=== PATIENT | male | born 1935 | race Caucasian/White ===

== ENCOUNTER 2016-10-31 16:36 | Inpatient (IN) ==
[2016-10-31] MEDS ORDERED: MAGNESIUM SULF RIDER 50 ML IV ONE (16:50)
[2016-10-31] MEDS ORDERED: MAGNESIUM SULF RIDER 2 GM in PREMIX 1 EACH IV STA (16:51)
--- NOTE | 2016-10-31 17:02 | Emergency Department Note ---
Rashad Finch Jamie, am scribing for, and in the presence of, Pj Frost MD 16: 43. Margot Ficnh James D, MD, personally performed the services described in this documentation, ascribed by Aristeo Solorzano in my presence, and it is both accurate and complete 657 . Arrival - Arrival Mode of Arrival: Stretcher Limitations: No Limitations Source: Patient, RN Notes Reviewed - History of Present Illness Onset (ago): hour(s) (2) Consistency: constant Severity: moderate <Pj Frost - Last Filed: 10/31/16 17:25> <You Quiles - Last Filed: 10/31/16 18:14> - History of Present Illness HPI Narrative: Patient is a 81 y/o white male who is presented by EMS as a transfer from [facility] for evaluation of defibrillator going off. Patient states he was eating when defibrillator went off knocking his cornbread out of his hand. He reports that this is the second time with the first time being 3-4 years ago. Patient states he "feels good" with no complaints. He has an EF of 25-30%. (Aristeo Solorzano) Patient is a 81 y/o white male who is presented by EMS as a transfer from [facility] for evaluation of defibrillator going off. Patient states he was eating when defibrillator went off knocking his cornbread out of his hand. He reports that this is the second time with the first time being 3-4 years ago. Patient states he "feels good" with no complaints. He has an EF of 25-30%. (Pj Frost) Allergies/Adverse Reactions: Allergies Allergy/AdvReac Type Severity Reaction Status Date / Time diazepam [From Valium] Allergy Unknown/Unable Verified 10/31/16 16:45 to obtain Home Medications: Home Medications Medication Instructions Recorded Confirmed Type Sertraline [Zoloft] 50 mg PO DAILY 10/31/16 10/31/16 History Simvastatin [Simvastatin] 40 mg PO DAILY 10/31/16 10/31/16 History Warfarin [Coumadin] 1 mg PO DAILY 10/31/16 10/31/16 History Warfarin [Coumadin] 5 mg PO DAILY 10/31/16 10/31/16 History Review of System - Review of System 12 point system: reviewed and no additional remarkable complaints except as stated - Review of System Constitutional: Absent: chills, diaphoresis, fever, weakness Eyes: Absent: vision change Respiratory: Absent: cough Cardiovascular: Present: other (Defibrillator went off). Absent: chest pain Gastrointestinal: Absent: abdominal pain, nausea, vomiting, diarrhea, constipation Musculoskeletal: Absent: joint swelling Skin: Absent: rash, change in color Neurological: Absent: headache, weakness, numbness, confusion Hematological/Lymphatic: Absent: easy bleeding, easy bruising <Pj Frost - Last Filed: 10/31/16 17:25> Medical,Surgical,& Family Hx - Medical History Cardio: History of: CHF (Nonischemic cardiomyopathy), Hypertension - Social History Smoking Status: Never smoker Frequency of Alcohol Use: None Type of Drug Use: None Marital Status: Lives With:: Alone Functional capacity: independent ambulation <Pj Frost - Last Filed: 10/31/16 17:25> Exam <Pj Frost - Last Filed: 10/31/16 17:25> <You Quiles - Last Filed: 10/31/16 18:14> Vital Signs: Vital Signs Temperature 97.6 F 10/31/16 16:41 Pulse Rate 79 10/31/16 16:41 Respiratory Rate 18 10/31/16 17:23 Blood Pressure 101/72 10/31/16 16:41 O2 Sat by Pulse Oximetry 97 10/31/16 16:41 GENERAL: This is a well-nourished well-developed white male in no apparent distress. VITAL SIGNS: Reviewed HEENT: Head is atraumatic and normocephalic. Pupils are equal round react to light. Extraocular movements are intact. Oropharynx is benign with moist mucous membranes. NECK: Neck is soft and supple without tenderness. There are no masses. There is no lymphadenopathy. LUNGS: Lungs are clear to auscultation. Chest rises symmetrically. There is no chest wall tenderness. CV: Heart is irregularly irregular with 2/6 systolic ejection murmur loudest at the right sternal border. ABDOMEN: Abdomen is soft, nontender to palpation. There are no abdominal abnormal masses palpated. There is no organomegaly. Bowel sounds are present and active. SKIN: Skin is warm and dry. No rash. EXTREMITIES: Patient has full range of motion without tenderness. There is no pedal edema. NEUROLOGIC: Awake alert and oriented 4. Cranial nerves II through XII are grossly intact. Motor is 5 over 5 in all extremities bilaterally. (Pj Frost) Course - Consultations Time: 17:01 <Pj Frost - Last Filed: 10/31/16 17:25> - Consultations Time: 18:14 <You Quiles - Last Filed: 10/31/16 18:14> Course Narrative: AICD will be interrogated. (Pj Frost) - Consultations Consultation #1: Discussed with Dr. Pollock. (Pj Frost) Consultation #2: Dr. Yessi Gonzales will admit the patient to observation. (You Quiles) Results - Labs Lab Results: I have reviewed the patients labs - EKG EKG results: interpreted by ERMD - Diagnostic Findings Procedure: Chest x-ray: image reviewed by me (AICD in position with leads in position. Cardiomegaly.) <Pj Frost - Last Filed: 10/31/16 17:25> - Labs Lab Results: I have reviewed the patients labs <You Quiles - Last Filed: 10/31/16 18:14> - Impressions EKG: Atrial fibrillation with a rate of 78, frequent PVCs, left bundle branch block. (Pj Frost) Disposition Case discussed with: patient <Pj Frost - Last Filed: 10/31/16 17:25> <You Quiles - Last Filed: 10/31/16 18:14> Clinical Impression: Nonischemic cardiomyopathy, AICD discharge, Atrial fibrillation, Chronic anticoagulation Condition: Stable
[2016-10-31 17:22] LABS: INR 1.8; PT Patient Result 20.1 SECS; Partial Thromboplastin Time 23.9 SECS (0-40)
--- NOTE | 2016-10-31 17:26 | XRay Report ---
2 view chest. Indication: Cardiac arrhythmia. Comparison: June 22, 2013. The cardiac silhouette is enlarged with a globular configuration often indicating cardiomyopathy or pericardial effusion. Cardiac hardware appears to be in satisfactory position. Calcific plaque is present within the aortic knob. The pulmonary vasculature is normal. The lung rodriguez are free of infiltrate. No pneumothorax or pleural effusion. Stable osseous structures. Interposition of colon anterior and superior to the liver margin. Impression: Enlarged cardiac silhouette. No acute abnormality or interval change seen. PROCEDURE INTERPRETED AT [facility] DEPARTMENT OF RADIOLOGY Final Report Signed by: Dr. Edwige Cameron
[2016-10-31] MEDS ORDERED: guaiFENesin/DM ER 600-30 MG TABLET PO PRN (18:14)
[2016-10-31] MEDS ORDERED: ACETAMINOPHEN 325 MG TABLET PO PRN (18:14)
[2016-10-31] MEDS ORDERED: DOCUSATE SODIUM 100 MG CAPSULE PO PRN (18:14)
[2016-10-31] MEDS ORDERED: MORPHINE 2 MG/1 ML SYRINGE IV PRN (18:14)
[2016-10-31] MEDS ORDERED: MAGNESIUM SULF RIDER 2 GM in PREMIX 1 EACH IV PRN (18:14)
[2016-10-31] MEDS ORDERED: ONDANSETRON 4 MG/2 ML VIAL IV PRN (18:14)
[2016-10-31] MEDS ORDERED: POTASSIUM CHLORIDE 20 MEQ TABLET PO PRN (18:14)
[2016-11-01 07:12] LABS: Basophils % 0.6 % (0.0-0.8); Eosinophils # 0.1 10*3/uL (0.0-0.87); Eosinophils % 2.4 % (0.00-10.9); Hematocrit 39.6 VOL% (42.0-52.0); Hemoglobin 12.6 GM/DL (14.0-18.0); Immature Granulocytes % 0.4 %; Immature Granulocytes Absolute 0.02 #; Lymphocytes # 1.2 10*3/uL (1.4-4.0); Lymphocytes % 22.2 % (21.2-54.2); Mean Corpuscular HGB Conc 31.8 GM/DL (32-36); Mean Corpuscular Hemoglobin 28 PG (27-34); Mean Corpuscular Volume 88.6 FL (87-102); Mean Platelet Volume 10.5 FL (9.6-12.0); Monocytes # 0.5 10*3/uL (0.11-0.8); Monocytes % 8.6 % (1.7-12.7); Neutrophils # 3.5 10*3/uL (1.4-7.4); Neutrophils % 65.8 % (38.7-73.9); Platelet Count 100 T/CUMM (130-400); Red Blood Count 4.47 MC/CUMM (3.8-5.5); Red Cell Distribution Width 14.2 % (9.3-17.3); White Blood Count 5.3 T/CUMM (4-12)
[2016-11-01 07:43] LABS: Calcium 8.8 MG/DL (8.5-10.1); Magnesium 2.6 MG/DL (1.8-2.4); Osmolality,Calculated 295.8 MOS/KG (273-304); Potassium 4.3 MMOL/L (3.5-5.1)
[2016-11-01] MEDS: SERTRALINE 50 MG TABLET PO SCH (08:57)
[2016-11-01] MEDS: SIMVASTATIN 40 MG TABLET PO SCH (08:57)
[2016-11-01] MEDS: PANTOPRAZOLE 40 MG TABLET PO SCH (08:57)
[2016-11-01] MEDS ORDERED: CARVEDILOL 3.125 MG TABLET PO SCH (09:00)
--- NOTE | 2016-11-01 09:13 | EKG Report ---
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
--- NOTE | 2016-11-01 09:21 | Cardiology History & Physical ---
Assessment and Plan - Time spent with patient Time spent with patient: Greater than 30 minutes (Examination, chart review, film review documentation and orders) (1) Ventricular tachycardia Status: Acute Assessment and plan: The patient reports a period of recurrent cardioversions with VT approximately 5 years ago. He is now had another brief period here over the last 2 weeks several anti-tachycardia pacing sequences and now a high voltage DC cardioversion that appeared to be appropriate. I will continue a low-dose Coreg as he tolerates and we will ask Dr. James to see. I will not start antiarrhythmics at this point. If he becomes unstable the plan may change however for now would like Dr. James to see while not on antiarrhythmics. I do not think the patient is on antiarrhythmics he did not recognize the names of any. He does not know all of his medications and they are being brought by his family from home. Current Visit: Yes (2) Renal insufficiency Status: Chronic Assessment and plan: I am not sure of the chronicity of this is mild. I will recheck in the morning. His electrolytes are normal. Current Visit: Yes (3) Atrial fibrillation Status: Chronic Current Visit: Yes Qualifiers: Atrial fibrillation type: permanent Qualified Code(s): I48.2 - Chronic atrial fibrillation (4) Chronic anticoagulation Status: Chronic Current Visit: Yes (5) Nonischemic cardiomyopathy Status: Acute Current Visit: Yes (6) Hypotension Status: Acute Current Visit: Yes History of Present Illness Chief complaint: ICD shock History of present illness: Mr. Taylor is a 81 year old male patient of Dr. Bubba Granado who has nonischemic cardiomyopathy [place] [employer] class II. The patient has a history of 5 shocks several years ago and had generator change approximately 2 years ago. The patient states that over the last 2 weeks he has felt funny at several different times. Yesterday while visiting his at the fci and eating cornbread device shocked him. He states that he felt that weak feeling again followed by a warm feeling and then shocked him. His device was interrogated in the emergency room at [facility] after being transferred from the emergency room at [facility]. The patient has had more than one episode of anti-tachycardia pacing that prevented high-voltage shock however yesterday it failed and he was rescued with a high voltage shock. The patient tells me that he has been shocked 5 times before it sounds like relatively close together a few years ago. He also tells me he has no coronary artery disease. He is on a heart failure regimen but does not know his medications he did know the name of Coreg and Coumadin with other medications he did not know the name off. His family is bringing his medications later today so we can clarify. It appears as though his blood pressure is so low at this time he will not tolerate much more in the form of EPHRAIM or ARB. The patient has been relatively stable he has not been seen at [facility] therefore I do not have any outpatient records and he states it has been a while since he saw Dr. Granado. He seems to be very compliant. He is but his is in a fci with Alzheimer's dementia and he is remains very active. He states he can walk as far she needs to without having shortness of breath he denies any lower extremity edema and he sleeps on one pillow at night. He is very pleasant and conversant. 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 He is now retired. The patient denies any syncope he did have what sounds like symptomatic ATP in the last couple weeks he has not had any chest pain and no change in his overall status he denies fevers or chills. This shock came as a complete surprise to him and he said he felt perfectly fine. Home Medications Medication Instructions Recorded Confirmed Type Sertraline [Zoloft] 50 mg PO DAILY 10/31/16 10/31/16 History Simvastatin [Simvastatin] 40 mg PO DAILY 10/31/16 10/31/16 History Warfarin [Coumadin] 1 mg PO DAILY 10/31/16 10/31/16 History Warfarin [Coumadin] 5 mg PO DAILY 10/31/16 10/31/16 History Allergies Allergy/AdvReac Type Severity Reaction Status Date / Time diazepam [From Valium] Allergy Unknown/Unable Verified 10/31/16 16:45 to obtain - Constitutional Constitutional: Absent: anorexia, chills, malaise, night sweats, stops breathing during sleep - EENT Eyes: Absent: loss of vision, requires corrective lense Ears: Present: decreased hearing Nose, mouth and throat: Absent: nasal congestion, neck mass, tongue swelling - Cardiovascular Cardiovascular: Present: lightheadedness. Absent: chest pain at rest, chest pain with activity, claudication, diaphoresis, dyspnea, dyspnea on exertion, edema, orthopnea, palpitations, PND - Respiratory Respiratory: Absent: cough, dyspnea, dyspnea on exertion, wheezing, snoring, change in phlegm color - Gastrointestinal Gastrointestinal: Absent: abdominal pain, bloating, dyspepsia, dysphagia - Genitourinary Genitourinary: Present: difficulty urinating. Absent: hematuria, nocturia - Musculoskeletal Musculoskeletal: Absent: arthralgias, joint swelling - Neurological Neurological: Absent: abnormal gait, abnormal speech, disequilibrium - Psychiatric Psychiatric: Absent: anxiety, auditory hallucinations, depression - Endocrine Endocrine: Absent: cold intolerance, heat intolerance - Hematologic/Lymphatic Hematologic/Lymphatic: Absent: easy bleeding, easy bruising Medical,Surgical,& Family Hx - Medical History Cardio: History of: Cardiac Dysrhythmia (VT/V. fib. Also reports a history of chronic atrial fibrillation.), CHF (Nonischemic cardiomyopathy), Hypertension, Cardiovascular Problems (Defibrillator with history of risky previously with voltage shocks and anti) Neurology: History of: TIA Musculoskeletal: No history of: Amputation Other: History of: Miscellaneous Medical Problems (dvt) - Surgical History Cardiac Surgeries: Sugical HX of: Internal Defibrillator Patient Denies: Cardiac Catheterization Thoracic Surgeries: Patient denies;: Organ Transplant, Lobectomy HEENT Surgeries: Patient denies: Tonsilectomy & Adenoidectomy - Social History Smoking Status: Never smoker Frequency of Alcohol Use: None Type of Drug Use: None Marital Status: Lives With:: Alone ( resides in a fci due to Alzheimer's) Functional capacity: independent ambulation Cardiology Physical Exam - Constitutional Vitals: Vital Signs Temp Pulse Resp BP Pulse Ox 98.1 F 63 18 86/52 92 L 11/01/16 08:00 11/01/16 08:00 11/01/16 05:35 11/01/16 08:00 11/01/16 08:00 Intake and Output 10/31/16 11/01/16 11/01/16 23:59 07:59 15:59 Intake Total 220 / 220 0 / 0 Output Total 400 / 400 Balance -180 / -180 0 / 0 Intake: Oral 220 / 220 0 / 0 Output: Urine 400 / 400 Other: Voiding Method Urinal Weight 113.398 kg 113.398 kg Patient Weight 11/01/16 23:59 Weight 113.398 kg General appearance: normal weight (Very tall gentleman that appears younger than his stated age) - Head Head exam: Present: normal inspection - Eye Eye exam: Present: EOMI Pupils: Present: JOMAR - ENT ENT exam: Present: normal exam - Neck Neck exam: Present: normal inspection - Respiratory Respiratory exam: Present: clear to auscultation bilaterally - Cardiovascular Cardiovascular exam: Present: irregular rhythm (Right is about 80) - GI/Abdominal GI/Abdominal exam: Present: normal bowel sounds - Extremities Exam Extremities exam: Present: normal inspection. Absent: edema - Back Exam Back exam: Present: normal inspection - Neurological Exam Neurological exam: Present: alert, oriented X3 - Psychiatric Psychiatric exam: Present: normal affect, normal mood - Skin Skin exam: Present: normal color, warm Result/EKG - Labs CBC & BMP: 11/01/16 07:07 11/01/16 07:07 Labs: Laboratory Results - last 24 hr 10/31/16 11/01/16 11/01/16 19:39 04:50 07:07 WBC 5.3 RBC 4.47 Hgb 12.6 L Hct 39.6 L MCV 88.6 MCH 28 MCHC 31.8 L RDW 14.2 Plt Count 100 L MPV 10.5 Neut % (Auto) 65.8 Lymph % (Auto) 22.2 [place] % (Auto) 8.6 Eos % (Auto) 2.4 Baso % (Auto) 0.6 Neut # (Auto) 3.5 Lymph # (Auto) 1.2 L [place] # (Auto) 0.5 Eos # (Auto) 0.1 Baso # (Auto) 0.0 Immature Gran % 0.4 Nucleated RBC % 0.0 Immature Gran # 0.02 Nucleated RBCs # 0.00 Sodium Potassium Chloride Carbon Dioxide Anion Gap BUN Creatinine GFR Calculation BUN/Creatinine Ratio Glucose Calculated Osmolality Calcium Magnesium Troponin I 0.251 H 0.227 H 11/01/16 07:07 WBC RBC Hgb Hct MCV MCH MCHC RDW Plt Count MPV Neut % (Auto) Lymph % (Auto) [place] % (Auto) Eos % (Auto) Baso % (Auto) Neut # (Auto) Lymph # (Auto) [place] # (Auto) Eos # (Auto) Baso # (Auto) Immature Gran % Nucleated RBC % Immature Gran # Nucleated RBCs # Sodium 144 Potassium 4.3 Chloride 105 Carbon Dioxide 29 Anion Gap 14.3 BUN 39 H Creatinine 1.60 H GFR Calculation 57 BUN/Creatinine Ratio 24.00 H Glucose 116 H Calculated Osmolality 295.8 Calcium 8.8 Magnesium 2.6 H Troponin I - EKG EKG results: interpreted by me (Atrial fibrillation with aberrant conducted beats or VPCs.) Quality Measures - Stroke Symptom Onset Unknown: No
[2016-11-01] MEDS: WARFARIN 1 MG TABLET PO SCH ×2 (17:52→17:55)
[2016-11-01] MEDS: WARFARIN 5 MG TABLET PO SCH ×2 (17:52→17:56)
[2016-11-01] MEDS: ZALEPLON 5 MG CAPSULE PO PRN (20:39)
[2016-11-01] MEDS: CARVEDILOL 12.5 MG TABLET PO SCH ×2 (20:39→21:12)
[2016-11-01] MEDS: traZODone 50 MG TABLET PO SCH (20:40)
[2016-11-02 05:32] LABS: Basophils % 0.6 % (0.0-0.8); Eosinophils # 0.2 10*3/uL (0.0-0.87); Hematocrit 35.8 VOL% (42.0-52.0); Hemoglobin 11.7 GM/DL (14.0-18.0); Immature Granulocytes % 0.4 %; Immature Granulocytes Absolute 0.02 #; Lymphocytes # 1.3 10*3/uL (1.4-4.0); Lymphocytes % 25.6 % (21.2-54.2); Mean Corpuscular HGB Conc 32.7 GM/DL (32-36); Mean Corpuscular Hemoglobin 28 PG (27-34); Mean Corpuscular Volume 85.6 FL (87-102); Mean Platelet Volume 10.8 FL (9.6-12.0); Monocytes # 0.5 10*3/uL (0.11-0.8); Monocytes % 9.6 % (1.7-12.7); Neutrophils % 60.8 % (38.7-73.9); Red Blood Count 4.18 MC/CUMM (3.8-5.5); Red Cell Distribution Width 14.3 % (9.3-17.3); White Blood Count 4.9 T/CUMM (4-12)
[2016-11-02 05:37] LABS: Platelet Count 93 T/CUMM (130-400)
[2016-11-02 05:48] LABS: Calcium 8.5 MG/DL (8.5-10.1); Magnesium 2.3 MG/DL (1.8-2.4); Potassium 3.9 MMOL/L (3.5-5.1)
[2016-11-02 05:58] LABS: Burr Cells Slight; Elliptocytes Few; Platelet Estimate Decreased
[2016-11-02] MEDS: LEVOTHYROXINE 175 MCG TABLET PO SCH (06:56)
--- NOTE | 2016-11-02 08:37 | Electrophysiology Consultation ---
History of Present Illness - Data of Consult Patient: new to practice Consult date: 11/02/16 Requesting Physician: Yessi Pollock - Consult Narrative Reason for consult: VT History of present illness: Mr. Taylor is a 81 year old male with a history of nonischemic cardiomyopathy, VVI ICD, ventricular tachycardia a few years ago, status post ICD shocks, LPAF with SR last documented in 2010. He was admitted after ICD shocks for ventricular tachycardia. Device interrogation showed AF, PVC, monomorphic VT, ICD shock. There was a successful ATP. He actually felt fine, before the instructed. Chronic lower extremity swelling , but not worsened recently. No chest pain, dyspnea and exertion or palpitations. His echo in 2016 showed ejection fraction 25-30%, moderate to severe MR. 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 No recent cardiac catheterization. He has CKD with creat 1.6, GFR 60. Compliant with medications. Also has a h/o TIA. Since admission, his feeling fine. Electrolytes were normal. He had a troponin leak of 0.2. EKG with A. fib, IVCD, frequent, monomorphic PVCs, with right inferior axis, this was present on his multiple prior EKGs. He also had some other PVCs, but less frequent. The telemetry strips show these PVCs, and a run of nonsustained VT, with different QRS morphology. QTc interval is normal. INR was subtherapeutic, 1.8 on admission. CC: Yessi Pollock, DO - Home Medications and Allergies Home Medications: Home Medications Medication Instructions Recorded Confirmed Type Sertraline [Zoloft] 50 mg PO DAILY 10/31/16 10/31/16 History Simvastatin [Simvastatin] 40 mg PO DAILY 10/31/16 10/31/16 History Warfarin [Coumadin] 0.5 mg PO DAILY 10/31/16 11/01/16 History Warfarin [Coumadin] 2.5 mg PO DAILY 10/31/16 11/01/16 History Ascorbic Acid [Vitamin C] 500 mg PO DAILY 11/01/16 11/01/16 History Aspirin EC Tab 81 mg PO DAILY 11/01/16 11/01/16 History Carvedilol 12.5 mg PO BID 11/01/16 11/01/16 History Cholecalciferol [Vitamin D3] 2,000 unit PO DAILY 11/01/16 11/01/16 History Cyanocobalamin (Vitamin B-12) 1,000 mcg PO DAILY 11/01/16 11/01/16 History [Vitamin B-12] Furosemide 80 mg PO BID 11/01/16 11/01/16 History Levothyroxine Tab [Synthroid Tab] 175 mcg PO DAILY@0700 11/01/16 11/01/16 History Lisinopril 10 mg PO DAILY 11/01/16 11/01/16 History Potassium Chloride 20 meq PO DAILY 11/01/16 11/01/16 History Spironolactone [Aldactone] 25 mg PO DAILY 11/01/16 11/01/16 History traZODone [Desyrel] 25 mg PO BEDTIME 11/01/16 11/01/16 History Allergies/Adverse Reactions: Allergies Allergy/AdvReac Type Severity Reaction Status Date / Time diazepam [From Valium] Allergy Unknown/Unable Verified 10/31/16 16:45 to obtain Medical,Surgical,& Family Hx - Medical History Cardio: History of: Cardiac Dysrhythmia (VT/V. fib. Also reports a history of chronic atrial fibrillation.), CHF (Nonischemic cardiomyopathy), CAD, Hypertension, Pacemaker (defib), Cardiovascular Problems (Defibrillator with history of risky previously with voltage shocks and anti) Neurology: History of: TIA Musculoskeletal: No history of: Amputation Other: History of: Miscellaneous Medical Problems (dvt) - Surgical History Cardiac Surgeries: Sugical HX of: Internal Defibrillator Patient Denies: Cardiac Catheterization Thoracic Surgeries: Patient denies;: Organ Transplant, Lobectomy HEENT Surgeries: Patient denies: Tonsilectomy & Adenoidectomy - Social History Smoking Status: Never smoker Frequency of Alcohol Use: None Type of Drug Use: None 12 point system: reviewed and no additional remarkable complaints except as stated Exam - Constitutional Vitals: Period Temp Pulse Resp BP Sys/Leigh Pulse Ox Last 24 Hr 97.4 F-98.4 F 67-73 18-20 83-122/55-65 91-97 General appearance: over weight - Head Head exam: Present: normal inspection - Eye Eye exam: Absent: conjunctival injection Pupils: Absent: dilated - ENT ENT exam: Present: normal external ear exam - Neck Neck exam: Present: normal inspection - Respiratory Respiratory exam: Present: clear to auscultation bilaterally - Cardiovascular Cardiovascular exam: Present: irregular rhythm, systolic murmur - GI/Abdominal GI/Abdominal exam: Present: normal bowel sounds - Extremities Exam Extremities exam: Present: normal inspection, normal capillary refill, edema (2+ ) - Back Exam Back exam: Present: normal inspection - Neurological Exam Neurological exam: Present: alert, oriented X3 - Psychiatric Psychiatric exam: Present: normal affect, normal mood - Skin Skin exam: Present: normal color, warm. Absent: cyanosis Results - Labs CBC & BMP: 11/02/16 04:39 11/02/16 04:39 Lab Results: I have reviewed the past 24 hour labs Assessment and Plan (1) Ventricular tachycardia Status: Acute Assessment and plan: 81-year-old male, presenting with ventricular tachycardia, ICD shocks. Chronic atrial fibrillation, nonischemic cardiomyopathy with stress test last year suggestive also of inferolateral disease, CHF, currently stable, chronic lower extremity swelling, subtherapeutic INR, history of TIA, hypertension, CKD st II- III. Mild flat elevation of troponins. VT. Will need to rule out reversible causes. Mild troponin leak. This could be due to VT/ICD shocks, although coronary embolization from A. fib or ACS will need to be considered. CHF appears to be at baseline. -Recheck troponin/CPK/MB. Check BNP. -Recheck INR. Bridge with Lovenox, if still subtherapeutic. He had sub and supratherapeutic INRs, based on his Coumadin log from [facility], a NOAC may be a better option. -Echo. Had mod-sev MR. Worsening valvular disease/CMP may contribute. -He is still having frequent uniform PVCs, despite normal electrolytes. High risk of VTA recurrence. Recommend to proceed with cardiac catheterization, rule out ischemia, assess EDP. Although his cardiomyopathy is documented as nonischemic, he had a stress test in 2016, the report of which stated old inferolateral disease. -If no reversible etiology, amiodarone could be considered. Ablation is usually less effective in nonischemic VTA. -We will adjust ICD settings. ATP was effective. No syncope. Current Visit: Yes (2) Nonischemic cardiomyopathy Status: Acute Current Visit: Yes (3) AICD discharge Status: Acute Current Visit: Yes (4) Atrial fibrillation Status: Chronic Current Visit: Yes Qualifiers: Atrial fibrillation type: permanent Qualified Code(s): I48.2 - Chronic atrial fibrillation (5) Chronic anticoagulation Status: Chronic Current Visit: Yes (6) Renal insufficiency Status: Chronic Current Visit: Yes Quality Measures - Stroke Symptom Onset Unknown: No
[2016-11-02] MEDS ORDERED: LISINOPRIL 10 MG TABLET PO SCH (09:00)
[2016-11-02] MEDS: SPIRONOLACTONE 25 MG TABLET PO SCH (09:16)
[2016-11-02] MEDS: CHOLECALCIFEROL 1,000 UNIT TABLET PO SCH (09:16)
[2016-11-02] MEDS: ASPIRIN EC 81 MG TABLET PO SCH (09:17)
[2016-11-02] MEDS: SIMVASTATIN 40 MG TABLET PO SCH (09:17)
[2016-11-02] MEDS: CYANOCOBALAMIN 500 MCG TABLET PO SCH (09:17)
[2016-11-02] MEDS: ASCORBIC ACID 500 MG TABLET PO SCH (09:17)
[2016-11-02] MEDS: PANTOPRAZOLE 40 MG TABLET PO SCH (09:17)
[2016-11-02] MEDS: SERTRALINE 50 MG TABLET PO SCH (09:17)
[2016-11-02] MEDS: CARVEDILOL 12.5 MG TABLET PO SCH ×2 (09:18→22:28)
[2016-11-02 09:50] LABS: INR 1.8; PT Patient Result 19.3 SECS
[2016-11-02 10:20] LABS: Troponin I Only 0.256 NG/ML (0.00-0.045)
--- NOTE | 2016-11-02 16:14 | ECHO Report ---
Mary Grace Taylor Exam Date: 11/02/2016 13:08 Referring Physician: Technologist: Cintia Hanna RDCS Age: 81 Ht (in): 76 Wt (lb): 252 Gender: M Exam Location: [facility] Echo Indications: Ventricular tachycardia, VVI ICD, s/p ICD shocks, Cardiomyopathy, unspecified, Atrial fibrillation, Essential (primary) hypertension BP: 88 / 61 HR: 76 Rhythm: Atrial fibrillation Technical Quality: Good IMPRESSIONS Severely increased left ventricular cavity size. Mild left ventricular hypertrophy. Left ventricular ejection fraction is estimated at 35 %. Moderately increased right ventricular size. Catheter/pacemaker wire visualized in the right ventricle. Moderately increased right atrial size. Catheter/pacemaker wire in the right atrial cavity. Severely increased left atrial size. Thickened mitral valve. Mild mitral valve regurgitation. Morphologically normal aortic valve without significant sclerosis or stenosis. There is no aortic regurgitation. Morphologically normal tricuspid valve. Mild tricuspid valve regurgitation. Tricuspid regurgitation velocities suggest a PAP of 51 mmHg. Morphologically normal pulmonic valve. Mild pulmonary valve regurgitation. Normal pericardium without effusion. Normal ascending aorta dimension. MEASUREMENTS (Male / Female) Normal Values 2D ECHO LV Diastolic Diameter PLAX 7.8 cm 4.2 - 5.9 / 3.9 - 5.3 cm LV Systolic Diameter PLAX 6.3 cm LV Fractional Shortening PLAX 19.1 % IVS Diastolic Thickness 1.1 cm 0.6 - 1.0 / 0.6 - 0.9 cm LVPW Diastolic Thickness 1.1 cm 0.6 - 1.0 / 0.6 - 0.9 cm RV Internal Dim ED PLAX 2.9 cm Aortic Root Diameter 4.0 cm LA Systolic Diameter LX 9.7 cm 3.0 - 4.0 / 2.7 - 3.8 cm DOPPLER TR Peak Velocity 322.0 cm/s TR Peak Gradient 41.5 mmHg FINDINGS Left Ventricle Severely increased left ventricular cavity size. Mild left ventricular hypertrophy. Left ventricular ejection fraction is estimated at 35 %. Right Ventricle Moderately increased right ventricular size. Catheter/pacemaker wire visualized in the right ventricle. Right Atrium Moderately increased right atrial size. Catheter/pacemaker wire in the right atrial cavity. Left Atrium Severely increased left atrial size. Mitral Valve Thickened mitral valve. Mild mitral valve regurgitation. Aortic Valve Morphologically normal aortic valve without significant sclerosis or stenosis. There is no aortic regurgitation. Tricuspid Valve Morphologically normal tricuspid valve. Mild tricuspid valve regurgitation. Tricuspid regurgitation velocities suggest a PAP of 51 mmHg. Pulmonic Valve Morphologically normal pulmonic valve. Mild pulmonary valve regurgitation. Pericardium Normal pericardium without effusion. Aorta Normal ascending aorta dimension. Jean Alatorre MD (Electronically Signed) Final Date: 02 November 2016 16:13
[2016-11-02] MEDS: WARFARIN 1 MG TABLET PO SCH (17:30)
[2016-11-02] MEDS: WARFARIN 5 MG TABLET PO SCH (17:32)
--- NOTE | 2016-11-02 18:10 | Cardiology Progress Note ---
Davide Finch Vanessa, RN, am scribing for, and in the presence of, Crystal Batista MD 18:10. Assessment and Plan - Time spent with patient Time spent with patient: Greater than 30 minutes (1) Ventricular tachycardia Status: Acute Assessment and plan: Currently he is not on antiarrhythmics. Dr. James has been consulted, and he evaluated patient earlier today. Recommendations noted. Echocardiogram has been ordered we will follow-up. Historically his cardiomyopathy has been documented as nonischemic but he did have a stress test in 2016 which revealed inferolateral fixed defect. We will discuss this case with Dr. James. He is recommending cardiac catheterization. The patient would like to go home, and if possible, if this is needed he would prefer Dr. Granado to perform this procedure. Current Visit: Yes (2) AICD discharge Status: Acute Assessment and plan: No recurrent ICD shocks since admission. Current Visit: Yes (3) Hypotension Status: Acute Assessment and plan: Overall, he remained hemodynamically stable. Current Visit: Yes (4) Nonischemic cardiomyopathy Status: Acute Assessment and plan: Previous echocardiogram in 2016 with LV ejection fraction 25-30%, and moderate to severe MR. 2D echocardiogram obtained today, and this will be reviewed. Current Visit: Yes (5) Atrial fibrillation Status: Chronic Assessment and plan: Continue carvedilol for rate control. He is anticoagulated with Coumadin. INR today is 1.8. Current Visit: Yes Qualifiers: Atrial fibrillation type: permanent Qualified Code(s): I48.2 - Chronic atrial fibrillation (6) Chronic anticoagulation Status: Chronic Assessment and plan: Continue Coumadin. Monitor PT/INR. Current Visit: Yes (7) Renal insufficiency Status: Chronic Assessment and plan: Stable with current creatinine of 1.6. Current Visit: Yes Cardiology - PN: Subj Interval history: Mr. Taylor is a 81-year-old white male with a past history of nonischemic cardiomyopathy, VVI ICD, ventricular tachycardia a few years ago, and he is now admitted after ICD shocks for ventricular tachycardia. His device has been interrogated and it revealed AF, PVC, monomorphic VT, and shock with successful ATP. Since he has been admitted, he has had no further ICD shocks. His electrolytes have been within acceptable range. CTNI of 0.2 and twelve-lead EKG reveals atrial fibrillation with frequent PVCs, couplets, and a run of nonsustained VT. Patient has been hypotensive with blood pressure averaging around 90/55. He has tolerated his Coreg and Aldactone, but has not been able to tolerate additional lisinopril. He is resting in bed today in no acute distress. He is requesting to go home. Denies chest pain, shortness of breath, presyncope, syncope, or other cardiac complaint at this time. INR is 1.8. BNP is 419. Exam (Progress Note) - Constitutional Vitals: Period Temp Pulse Resp BP Sys/Leigh Pulse Ox Last 24 Hr 97.4 F-98.2 F 57-73 18-20 83-122/51-65 91-96 Exam: General appearance: normal weight (Very tall gentleman that appears younger than his stated age) - Head Head exam: Present: normal inspection. Absent: laceration, hematoma - Eye Eye exam: Present: EOMI. Absent: periorbital swelling Pupils: Present: JOMAR. Absent: dilated, fixed. - ENT ENT exam: Present: normal exam - Neck Neck exam: Present: normal inspection. Absent: Tenderness, mass - Respiratory Respiratory exam: Present: clear to auscultation bilaterally. Absent: Rales, rhonchi, wheeze, stridor, decreased breath sounds. - Cardiovascular Cardiovascular exam: Present: 3/6 holosystolic apical murmur, irregular rhythm; rate is approximately 80, frequent PVCs, couplets, NSVT - GI/Abdominal GI/Abdominal exam: Present: normal bowel sounds, soft, nontender. Absent: firm, mass, distended - Extremities Exam Extremities exam: Present: normal inspection, full ROM, . Absent: edema, calf tenderness - Back Exam Back exam: Present: normal inspection - Neurological Exam Neurological exam: Present: alert, oriented X3. Grossly intact. No essential tremor appreciated. - Psychiatric Psychiatric exam: Present: normal affect, normal mood. Absent: Agitated, anxious - Skin Skin exam: Present: normal color, warm, dry, intact. Absent: rash, suspicious lesion, cyanosis, diaphoresis Result/EKG - Labs CBC & BMP: 11/02/16 04:39 11/02/16 04:39 Lab Results: I have reviewed the past 24 hour labs Labs: Laboratory Results - last 24 hr 11/02/16 11/02/16 11/02/16 04:39 04:39 09:07 WBC 4.9 RBC 4.18 Hgb 11.7 L Hct 35.8 L MCV 85.6 L MCH 28 MCHC 32.7 RDW 14.3 Plt Count 93 L MPV 10.8 Neut % (Auto) 60.8 Lymph % (Auto) 25.6 Ferry % (Auto) 9.6 Eos % (Auto) 3.0 Baso % (Auto) 0.6 Neut # (Auto) 3.0 Lymph # (Auto) 1.3 L [place] # (Auto) 0.5 Eos # (Auto) 0.2 Baso # (Auto) 0.0 Immature Gran % 0.4 Nucleated RBC % 0.0 Immature Gran # 0.02 Nucleated RBCs # 0.00 Platelet Estimate Decreased [place] Cells Slight Elliptocytes Few Morphology Comment INR PT Patient/Control Mix Sodium 143 Potassium 3.9 Chloride 106 Carbon Dioxide 29 Anion Gap 11.9 BUN 32 H Creatinine 1.60 H GFR Calculation 57 BUN/Creatinine Ratio 20.00 Glucose 110 H Calculated Osmolality 292.0 Calcium 8.5 Magnesium 2.3 Total Creatine Kinase 114 CK-MB (CK-2) 1.6 Troponin I 0.256 H B-Natriuretic Peptide 11/02/16 11/02/16 09:07 09:07 WBC RBC Hgb Hct MCV MCH MCHC RDW Plt Count MPV Neut % (Auto) Lymph % (Auto) [place]erry % (Auto) Eos % (Auto) Baso % (Auto) Neut # (Auto) Lymph # (Auto) Ferry # (Auto) Eos # (Auto) Baso # (Auto) Immature Gran % Nucleated RBC % Immature Gran # Nucleated RBCs # Platelet Estimate [place] Cells Elliptocytes Morphology Comment INR 1.8 PT Patient/Control Mix 19.3 Sodium Potassium Chloride Carbon Dioxide Anion Gap BUN Creatinine GFR Calculation BUN/Creatinine Ratio Glucose Calculated Osmolality Calcium Magnesium Total Creatine Kinase CK-MB (CK-2) Troponin I B-Natriuretic Peptide 419 H - EKG EKG results: interpreted by me, no acute changes EKG shows: atrial fibrillation (pulse rate 60s; PVC, couplets, NSVT noted) Quality Measures - Stroke Symptom Onset Unknown: No I, Crystal Batista MD, personally performed the services described in this documentation, ascribed by Radha Augustine RN in my presence, and it is both accurate and complete 810 .
[2016-11-02] MEDS: traZODone 50 MG TABLET PO SCH (22:27)
[2016-11-02] MEDS: ZALEPLON 5 MG CAPSULE PO PRN (22:27)
[2016-11-03 03:32] LABS: INR 1.7; PT Patient Result 18.7 SECS
[2016-11-03] MEDS: LEVOTHYROXINE 175 MCG TABLET PO SCH (06:56)
[2016-11-03] MEDS ORDERED: MAGNESIUM SULF RIDER 2 GM in PREMIX 1 EACH IV PRN (08:06)
[2016-11-03] MEDS ORDERED: diphenhydrAMINE CAP 25 MG CAPSULE PO ONE (08:06)
--- NOTE | 2016-11-03 08:10 | Cardiology Progress Note ---
Assessment and Plan (1) Ventricular tachycardia Status: Acute Assessment and plan: Currently he is not on antiarrhythmics. We will rule out an ischemic source of his ventricular arrhythmias with cardiac catheterization to be performed today by Dr. Granado. Current Visit: Yes (2) AICD discharge Status: Acute Assessment and plan: No recurrent ICD shocks since admission. Current Visit: Yes (3) Hypotension Status: Acute Assessment and plan: We will decrease his EPHRAIM inhibitor. Current Visit: Yes (4) Nonischemic cardiomyopathy Status: Acute Assessment and plan: P Current Visit: Yes (5) Atrial fibrillation Status: Chronic Assessment and plan: Continue carvedilol for rate control. He is anticoagulated with Coumadin. We are holding this for cardiac catheterization. Current Visit: Yes Qualifiers: Atrial fibrillation type: permanent Qualified Code(s): I48.2 - Chronic atrial fibrillation (6) Chronic anticoagulation Status: Chronic Assessment and plan: On hold for cardiac catheterization. Current Visit: Yes (7) Renal insufficiency Status: Chronic Assessment and plan: We will give him Mucomyst for cardiac catheterization. Current Visit: Yes Cardiology - PN: Subj Interval history: Evening was uneventful. No chest pain, shortness of breath. Polymorphic PVCs on telemetry. Exam (Progress Note) - Constitutional Vitals: Period Temp Pulse Resp BP Sys/Leigh Pulse Ox Last 24 Hr 97.5 F-98.8 F 57-83 18-20 81-98/48-69 95-98 Exam: General appearance: normal weight (Very tall gentleman that appears younger than his stated age) - Head Head exam: Present: normal inspection. Absent: laceration, hematoma - Eye Eye exam: Present: EOMI. Absent: periorbital swelling Pupils: Present: JOMAR. Absent: dilated, fixed. - ENT ENT exam: Present: normal exam - Neck Neck exam: Present: normal inspection. Absent: Tenderness, mass - Respiratory Respiratory exam: Present: clear to auscultation bilaterally. Absent: Rales, rhonchi, wheeze, stridor, decreased breath sounds. - Cardiovascular Cardiovascular exam: Present: 3/6 holosystolic apical murmur, irregular rhythm; rate is approximately 80, frequent PVCs, couplets, NSVT - GI/Abdominal GI/Abdominal exam: Present: normal bowel sounds, soft, nontender. Absent: firm, mass, distended - Extremities Exam Extremities exam: Present: normal inspection, full ROM, . Absent: edema, calf tenderness - Back Exam Back exam: Present: normal inspection - Neurological Exam Neurological exam: Present: alert, oriented X3. Grossly intact. No essential tremor appreciated. - Psychiatric Psychiatric exam: Present: normal affect, normal mood. Absent: Agitated, anxious - Skin Skin exam: Present: normal color, warm, dry, intact. Absent: rash, suspicious lesion, cyanosis, diaphoresis Result/EKG - Labs CBC & BMP: 11/02/16 04:39 11/02/16 04:39 Lab Results: I have reviewed the past 24 hour labs Labs: Laboratory Results - last 24 hr 11/02/16 11/02/16 11/02/16 09:07 09:07 09:07 INR 1.8 PT Patient/Control Mix 19.3 Total Creatine Kinase 114 CK-MB (CK-2) 1.6 Troponin I 0.256 H B-Natriuretic Peptide 419 H 11/03/16 03:09 INR 1.7 PT Patient/Control Mix 18.7 Total Creatine Kinase CK-MB (CK-2) Troponin I B-Natriuretic Peptide Quality Measures - Stroke Symptom Onset Unknown: No
[2016-11-03] MEDS: CARVEDILOL 12.5 MG TABLET PO SCH ×2 (09:10→21:14)
[2016-11-03] MEDS: SPIRONOLACTONE 25 MG TABLET PO SCH (09:10)
[2016-11-03] MEDS: CHOLECALCIFEROL 1,000 UNIT TABLET PO SCH (09:11)
[2016-11-03] MEDS: SIMVASTATIN 40 MG TABLET PO SCH (09:11)
[2016-11-03] MEDS: ASCORBIC ACID 500 MG TABLET PO SCH (09:11)
[2016-11-03] MEDS: SERTRALINE 50 MG TABLET PO SCH (09:11)
[2016-11-03] MEDS: PANTOPRAZOLE 40 MG TABLET PO SCH (09:12)
[2016-11-03] MEDS: ASPIRIN EC 81 MG TABLET PO SCH (09:12)
[2016-11-03] MEDS: LISINOPRIL 10 MG TABLET PO SCH (09:19)
[2016-11-03] MEDS: CYANOCOBALAMIN 500 MCG TABLET PO SCH (09:19)
[2016-11-03] MEDS: ACETYLCYSTEINE 600 MG CAPSULE PO SCH ×2 (09:21→21:15)
[2016-11-03 09:31] LABS: Basophils % 0.8 % (0.0-0.8); Eosinophils # 0.2 10*3/uL (0.0-0.87); Eosinophils % 3.2 % (0.00-10.9); Hematocrit 39.2 VOL% (42.0-52.0); Hemoglobin 12.7 GM/DL (14.0-18.0); Immature Granulocytes % 0.2 %; Immature Granulocytes Absolute 0.01 #; Lymphocytes # 1.2 10*3/uL (1.4-4.0); Lymphocytes % 24.9 % (21.2-54.2); Mean Corpuscular HGB Conc 32.4 GM/DL (32-36); Mean Corpuscular Hemoglobin 28 PG (27-34); Mean Corpuscular Volume 87.7 FL (87-102); Mean Platelet Volume 10.8 FL (9.6-12.0); Monocytes # 0.4 10*3/uL (0.11-0.8); Neutrophils # 3.1 10*3/uL (1.4-7.4); Neutrophils % 62.9 % (38.7-73.9); Platelet Count 102 T/CUMM (130-400); Red Blood Count 4.47 MC/CUMM (3.8-5.5); Red Cell Distribution Width 14.3 % (9.3-17.3)
[2016-11-03 10:04] LABS: Calcium 8.8 MG/DL (8.5-10.1); Magnesium 2.3 MG/DL (1.8-2.4); Potassium 4.4 MMOL/L (3.5-5.1)
--- NOTE | 2016-11-03 11:10 | Electrophysiology Progress Not ---
Assessment and Plan (1) Ventricular tachycardia Status: Acute Assessment and plan: 81-year-old male, presenting with ventricular tachycardia, ICD shocks. Chronic atrial fibrillation, nonischemic cardiomyopathy with stress test last year suggestive also of inferolateral disease, CHF, currently stable, chronic lower extremity swelling, subtherapeutic INR, history of TIA, hypertension, CKD st II- III. Mild flat elevation of troponins. VT. Will need to rule out reversible causes. Mild troponin leak. This could be due to VT/ICD shocks, although coronary embolization from A. fib or ACS will need to be considered. CHF appears to be at baseline. -Cardiac catheterization is planned for today. If no reversible etiology, such as ischemia or CHF, the risk of VTA recurrence would be high. Consider diuresis if EDP high. He still has monomorphic, frequent ventricular ectopy. If no reversible etiology, amiodarone is an option. Ablation is usually less effective in nonischemic VTA. -AF. Rate well controlled. Resume anticoagulation post cath. -Echo. MR was describe as mild. LVEF 35%. -ICD settings were adjusted. Will get more ATPs for VT. no syncope. Current Visit: Yes (2) Nonischemic cardiomyopathy Status: Acute Current Visit: Yes (3) AICD discharge Status: Acute Current Visit: Yes (4) Atrial fibrillation Status: Chronic Current Visit: Yes Qualifiers: Atrial fibrillation type: permanent Qualified Code(s): I48.2 - Chronic atrial fibrillation (5) Chronic anticoagulation Status: Chronic Current Visit: Yes (6) Renal insufficiency Status: Chronic Current Visit: Yes Electrophysiology Subjective Interval history: Sporadic ventricular ectopy, approximately the same frequency, uniform morphology, as before. He is not symptomatic from heart failure with light activity. Cardiac catheterization is planned for today. Exam - Constitutional Vitals: Period Temp Pulse Resp BP Sys/Leigh Pulse Ox Last 24 Hr 97.6 F-98.8 F 68-83 18-20 81-94/48-69 95-98 General appearance: over weight - Head Head exam: Present: normal inspection - Eye Eye exam: Absent: conjunctival injection Pupils: Absent: dilated - ENT ENT exam: Present: normal external ear exam - Neck Neck exam: Present: normal inspection - Respiratory Respiratory exam: Present: clear to auscultation bilaterally - Cardiovascular Cardiovascular exam: Present: regular rate and rhythm - GI/Abdominal GI/Abdominal exam: Present: normal bowel sounds - Extremities Exam Extremities exam: Present: normal inspection, normal capillary refill. Absent: edema - Back Exam Back exam: Present: normal inspection - Neurological Exam Neurological exam: Present: alert, oriented X3 - Psychiatric Psychiatric exam: Present: normal affect, normal mood - Skin Skin exam: Present: normal color, warm. Absent: cyanosis Results - Labs CBC & BMP: 11/03/16 08:47 11/03/16 08:47 Lab Results: I have reviewed the past 24 hour labs Quality Measures - Stroke Symptom Onset Unknown: No
[2016-11-03] MEDS ORDERED: HEPARIN/NACL 0.9% 2 UNITS/ML 1,000 ML IV ONE (13:07)
[2016-11-03] MEDS ORDERED: LIDOCAINE 1% 20 ML VIAL ONE (13:07)
[2016-11-03] MEDS ORDERED: MIDAZOLAM 2 MG/2 ML VIAL ONE (13:37)
[2016-11-03] MEDS ORDERED: HYDROmorphone 2 MG/1 ML VIAL ONE (13:37)
--- NOTE | 2016-11-03 14:14 | Cardiac Catheterization ---
Date of Procedure:: 11/03/16 Procedure: CLINICAL SUMMARY: The patient presented with ventricular tachycardia. He has a severe cardiomyopathy and mild increasing cardiac enzymes. He is undergoing cardiac catheterization at this time to rule out significant obstructive artery disease as a contributor factor to his presentation. PROCEDURES PERFORMED: 1. Right femoral percutaneous arteriotomy 2. Left heart catheterization. 3. Resting hemodynamics. 4. Left ventriculography. 5. Coronary arteriography. 6. Right femoral arteriogram. 7. Angio-Seal closure of the right femoral artery. DESCRIPTION OF PROCEDURE: After obtaining informed consent, the patient was brought to the cardiac catheterization lab where the right groin was prepped and draped in the usual sterile manner. Using IV sedation, local anesthesia, and Modified Seldinger technique, a needle was placed in the right femoral artery and a sheath was positioned without difficulty. A left coronary catheter was advanced over a guidewire under fluoroscopic control to the ascending aorta where angiograms of the left coronary artery were undertaken in multiple views. After adequate angiograms, this catheter was withdrawn and a right coronary catheter was advanced over a guidewire under fluoroscopic control to the ascending aorta with angiograms of the RCA were undertaken in numerous projections. After adequate angiograms, this catheter was removed and a pigtail ventriculographic catheter was advanced over a guidewire under fluoroscopic control to the aortic valve and left ventricular pressures were measured. After adequate pressures were measured, this catheter was used to perform left ventriculography in the TIRADO projection. This catheter was then withdrawn under hemodynamic monitoring and removed from the patient. A right femoral arteriogram was performed showing adequate sheath placement for closure device deployment. The sheath was then removed and an Angio-Seal device was used to obtain hemostasis. The patient was transferred back to the room having suffered no immediate complications. HEMODYNAMICS: See the accompanying data sheet. CORONARY ARTERIOGRAPHY: LEFT MAIN: The left main coronary artery is a large caliber vessel, which bifurcates into the left anterior descending and left circumflex coronary arteries. The left main coronary artery has no significant obstructive disease. LEFT CIRCUMFLEX: The left circumflex coronary artery is a moderate size vessel. It trifurcates immediately at its origin from the left main into a very small ramus-like branch, a moderate sized high obtuse marginal branch and a relatively small circumflex coronary artery the gives off a small posterolateral branch. The left circumflex coronary artery and its tributaries are angiographically free of significant obstructive disease. LEFT ANTERIOR DESCENDING: The left anterior descending artery is a large- caliber vessel which gives off 2 small to moderate-sized diagonal branches in its midsegment. Left anterior descending coronary artery and its treatment. Her angiographically free of significant obstructive disease. RIGHT CORONARY ARTERY: The right coronary artery is a very large vessel which gives off posterior descending artery and an extensive posterolateral system. The right coronary artery is angiographically free of significant obstructive disease. LEFT VENTRICULOGRAPHY: Left ventriculogram is a somewhat limited study but shows a severe dilated cardiomyopathy with an ejection fraction estimated at 20- 25%. PERIPHERAL ARTERIOGRAPHY: Right femoral arteriogram shows a normal right iliofemoral artery with adequate sheath placement for closure device deployment. IMPRESSIONS: 1. There is no significant obstructive coronary artery disease seen on cardiac catheterization 2. Severe dilated nonischemic cardiomyopathy as described above. 3. Internal cardiac defibrillator lead noted in the right ventricle. 4. Normal right iliofemoral arterial system with successful Angio-Seal closure of this vessel. PLAN: The patient was transferred back to his room for recovery. There does not appear to be any significant obstructive coronary artery disease contributing to his arrhythmia. We'll continue to optimize his medical management. Hopefully he can be discharged home in the near future. We will follow-up with him in a week or 2. Anesthesia: minimal conscious sedation Surgeon / Physician: Moises Granado Estimated blood loss: minimal Condition: stable Disposition: floor - Medications / Follow-up
[2016-11-03] MEDS: traZODone 50 MG TABLET PO SCH (21:15)
[2016-11-04 05:59] LABS: Basophils % 0.6 % (0.0-0.8); Eosinophils # 0.2 10*3/uL (0.0-0.87); Hematocrit 35.1 VOL% (42.0-52.0); Hemoglobin 11.4 GM/DL (14.0-18.0); Immature Granulocytes % 0.6 %; Immature Granulocytes Absolute 0.03 #; Lymphocytes % 17.9 % (21.2-54.2); Mean Corpuscular HGB Conc 32.5 GM/DL (32-36); Mean Corpuscular Hemoglobin 28 PG (27-34); Mean Corpuscular Volume 86.9 FL (87-102); Mean Platelet Volume 11.2 FL (9.6-12.0); Monocytes # 0.5 10*3/uL (0.11-0.8); Monocytes % 9.2 % (1.7-12.7); Neutrophils # 3.7 10*3/uL (1.4-7.4); Neutrophils % 68.7 % (38.7-73.9); Red Blood Count 4.04 MC/CUMM (3.8-5.5); Red Cell Distribution Width 14.4 % (9.3-17.3); White Blood Count 5.4 T/CUMM (4-12)
[2016-11-04 06:02] LABS: Platelet Count 93 T/CUMM (130-400)
[2016-11-04 06:03] LABS: INR 1.8; PT Patient Result 19.6 SECS
[2016-11-04 06:19] LABS: Elliptocytes Few; Hypochromasia 1+; Platelet Estimate Decreased
[2016-11-04 06:34] LABS: Calcium 8.4 MG/DL (8.5-10.1); Osmolality,Calculated 295.7 MOS/KG (273-304); Potassium 4.2 MMOL/L (3.5-5.1)
[2016-11-04] MEDS: LEVOTHYROXINE 175 MCG TABLET PO SCH (07:44)
[2016-11-04] MEDS ORDERED: AMIODARONE 200 MG TABLET PO SCH (09:00)
--- NOTE | 2016-11-04 09:17 | Electrophysiology Progress Not ---
Assessment and Plan (1) Ventricular tachycardia Status: Acute Assessment and plan: 81-year-old male, presenting with ventricular tachycardia, ICD shocks. Chronic atrial fibrillation, nonischemic cardiomyopathy. History of TIA, hypertension, CKD st II-III. Mild flat elevation of troponins. -VT, ICD shocks. Risk of recurrent arrhythmia is high, seems to be related to progression of his nonischemic cardiomyopathy. EDP was not significantly elevated and he does not have significant CAD or electrolyte issues. I recommend to start p.o. amiodarone load, 400 mg twice daily, for 1 week, then cut back to 200 mg daily. -Frequent uniform PVCs. If the VT is refractory to medical management, EP study /ablation can be pursued. -AF. Rate well controlled. Resume anticoagulation. Coumadin 3 mg today, then follow-up in Coumadin clinic. -Borderline BP. If this improves, and renal function allows, may increase EPHRAIM inhibitor or switch to Entresto -ICD settings were adjusted. Will get more ATPs for VT. no syncope. Current Visit: Yes (2) Nonischemic cardiomyopathy Status: Acute Current Visit: Yes (3) AICD discharge Status: Acute Current Visit: Yes (4) Atrial fibrillation Status: Chronic Current Visit: Yes Qualifiers: Atrial fibrillation type: permanent Qualified Code(s): I48.2 - Chronic atrial fibrillation (5) Chronic anticoagulation Status: Chronic Current Visit: Yes (6) Renal insufficiency Status: Chronic Current Visit: Yes Electrophysiology Subjective Interval history: Cardiac catheterization showed no significant CAD, EDP was 13. Ejection fraction around 25%. He still having frequent ventricular ectopy, not symptomatic. No recurrence of sustained ventricular tachycardia. Exam - Constitutional Vitals: Period Temp Pulse Resp BP Sys/Leigh Pulse Ox Last 24 Hr 97.6 F-99 F 55-88 18-20 74-119/47-69 92-99 General appearance: over weight - Head Head exam: Present: normal inspection - Eye Eye exam: Absent: conjunctival injection Pupils: Absent: dilated - ENT ENT exam: Present: normal external ear exam - Neck Neck exam: Present: normal inspection - Respiratory Respiratory exam: Present: clear to auscultation bilaterally - Cardiovascular Cardiovascular exam: Present: irregular rhythm, systolic murmur - GI/Abdominal GI/Abdominal exam: Present: normal bowel sounds - Extremities Exam Extremities exam: Present: normal inspection, normal capillary refill. Absent: edema - Back Exam Back exam: Present: normal inspection - Neurological Exam Neurological exam: Present: alert, oriented X3 - Psychiatric Psychiatric exam: Present: normal affect, normal mood - Skin Skin exam: Present: normal color, warm. Absent: cyanosis Results - Labs CBC & BMP: 11/04/16 05:33 11/04/16 05:33 Lab Results: I have reviewed the past 24 hour labs Quality Measures - Stroke Symptom Onset Unknown: No
[2016-11-04] MEDS: ASPIRIN EC 81 MG TABLET PO SCH (09:30)
[2016-11-04] MEDS: CHOLECALCIFEROL 1,000 UNIT TABLET PO SCH (09:30)
[2016-11-04] MEDS: SIMVASTATIN 40 MG TABLET PO SCH (09:30)
[2016-11-04] MEDS: LISINOPRIL 10 MG TABLET PO SCH (09:30)
[2016-11-04] MEDS: CARVEDILOL 12.5 MG TABLET PO SCH (09:30)
[2016-11-04] MEDS: SPIRONOLACTONE 25 MG TABLET PO SCH (09:30)
[2016-11-04] MEDS: PANTOPRAZOLE 40 MG TABLET PO SCH (09:30)
[2016-11-04] MEDS: CYANOCOBALAMIN 500 MCG TABLET PO SCH (09:30)
[2016-11-04] MEDS: ASCORBIC ACID 500 MG TABLET PO SCH (09:30)
[2016-11-04] MEDS: SERTRALINE 50 MG TABLET PO SCH (09:30)
[2016-11-04] MEDS: ACETYLCYSTEINE 600 MG CAPSULE PO SCH (09:34)
--- NOTE | 2016-11-04 10:48 | Discharge Summary ---
<Lanie Winkler E - Last Filed: 11/04/16 10:49> Hospital Course - Hospital Course Hospital Course: Mr. Taylor, 81-year-old male, routinely followed by Dr. Moises Granado. History of nonischemic cardiomyopathy ([place] [employer] classification II) ventricular tachycardia. Patient had last shock several years ago and had a generator change approximately 2 years ago. Patient was brought to the emergency department after receiving a defibrillation from his ICD. Device was interrogated and found atrial fib, PVCs, monomorphic ventricular tachycardia, ICD shock. There was successful ATP. Dr. James, retail loan officer, was consulted. He recommended patient undergo cardiac catheterization. For this reason, Dr. Moises Granado performed elective cardiac catheterization November 03, 2016 with the following noted: IMPRESSIONS: 1. There is no significant obstructive coronary artery disease seen on cardiac catheterization 2. Severe dilated nonischemic cardiomyopathy as described above. 3. Internal cardiac defibrillator lead noted in the right ventricle. 4. Normal right iliofemoral arterial system with successful Angio-Seal closure of this vessel. He tolerated the procedure well without complication was returned to our telemetry unit in stable condition. It was felt that his risk of recurrent arrhythmias is high as this seems to be related to progression of his nonischemic cardiomyopathy (EF 35%). During the hospital stay, ICD settings were adjusted. He was recommended to continue his anticoagulation and Coumadin 2 mg each evening. (He was taking 3 mg each evening prior to arrival). Because we are initiating amiodarone, we will discharge on a lower dose of Coumadin (2 mg and each evening) and have his INR checked Wednesday, November 09, 2016 at [facility]. Acute on chronic renal insufficiency (Stage II) during hospital stay, improved. He was previously taking a higher dose of lisinopril but it discharge to challenging with 2.5 mg orally daily monitor his BMP closely. Lasix not being utilized at discharge due to hypotension. Spironolactone He continues to take: Aspirin 81 mg orally daily Amiodarone 400 mg orally twice daily 1 week, then 200 mg orally daily Carvedilol 12.5 mg orally twice daily, lisinopril 2.5 mg daily, simvastatin 40 mg orally each evening, spironolactone 25 mg daily Lisinopril 2.5 mg orally daily Simvastatin 40 mg orally each evening Spironolactone 25 mg orally daily Pantoprazole 40 mg orally daily New dose: Warfarin 2 mg orally each evening He will resume his other non-cardiac preadmission medications as well. Patient is anxious for release home. Having felt him at maximal medical therapy , patient has been discharged home in stable condition he is to follow-up with Dr. Granado in 1-2 weeks. He will have his INR drawn Wednesday, November 09, 2016 at [facility]. - Time spent with patient Time with patient DS: Greater than 30 minutes Diagnosis - Discharge Diagnosis (1) Hypotension Status: Resolved (2) Nonischemic cardiomyopathy Status: Chronic (3) Ventricular tachycardia Status: Resolved (4) Atrial fibrillation Status: Chronic (5) Chronic anticoagulation Status: Chronic (6) Renal insufficiency Status: Chronic (7) ICD (implantable cardioverter-defibrillator) discharge Status: Chronic (8) AICD discharge Status: Resolved Specialty Discharge - Follow Up or Referrals Follow up with: Moises Granado MD [Physician] - 11/12/16 1:40 pm (Lab work and EKG to be done November 09 at 10:[address] Granado's office. Appt with Dr. Granado: November 12 at 1:40 PM 1-2 weeks. Will need the following labs drawn WEDNESDAY, November 09, 2016 at [facility]: PT /INR, BMP, Mg+, CBC. EKG) Discharge Plan - Discharge Data Disposition: Disch To Home/Self Care Condition at Discharge: Stable Discharge Diet: heart healthy Activity: other (Post cath expectations) Hygiene: other (Post cath expectations) Weight Bearing at Discharge: other (Post cath expectations) Driving: other (Post cath expectations) Contact your physician if you experience:: fever over 101, Difficulty voiding, Redness or swelling, Nausea/Vomiting, Shortness of breath, Bleeding, pain uncontrolled by pain medications - Discharge Medications New Lisinopril [Prinivil] 2.5 mg PO DAILY #30 tablet Warfarin [Coumadin] 2 mg PO DAILY@1800 #30 tablet Amiodarone Tab [Cordarone Tab] 400 mg PO BID #25 tablet Pantoprazole Tab [Protonix Tab] 40 mg PO DAILY #30 tablet Continue Simvastatin 40 mg PO DAILY Cholecalciferol [Vitamin D3] 2,000 unit PO DAILY traZODone [Desyrel] 25 mg PO BEDTIME Levothyroxine Tab [Synthroid Tab] 175 mcg PO DAILY@0700 Aspirin EC Tab 81 mg PO DAILY Cyanocobalamin (Vitamin B-12) [Vitamin B-12] 1,000 mcg PO DAILY Carvedilol 12.5 mg PO BID Ascorbic Acid [Vitamin C] 500 mg PO DAILY Sertraline [Zoloft] 50 mg PO DAILY Spironolactone [Aldactone] 25 mg PO DAILY Discontinued Warfarin [Coumadin] 0.5 mg PO DAILY Warfarin [Coumadin] 2.5 mg PO DAILY Furosemide 80 mg PO BID Potassium Chloride 20 meq PO DAILY Lisinopril 10 mg PO DAILY - Follow Up or Referral Follow Up: Moises Granado MD [Physician] - 11/12/16 1:40 pm (Lab work and EKG to be done November 09 at 10:[address] Granado's office. Appt with Dr. Granado: November 12 at 1:40 PM 1-2 weeks. Will need the following labs drawn WEDNESDAY, November 09, 2016 at [facility]: PT /INR, BMP, Mg+, CBC. EKG) - Forms/Instructions Instructions: Left Heart Catheterization (DC) Exam - Constitutional Vitals: Period Temp Pulse Resp BP Sys/Leigh Pulse Ox Last 24 Hr 98.3 F-99 F 55-86 18-20 84-118/54-71 94-97 Exam: General: [Appears well with no apparent distress.] [Pleasant and cooperative. ] [Appears comfortable.] HEENT: [PERRL, normocephalic, atraumatic. Mucous membranes moist. No jaundice noted. Conjunctiva moist and clear, sclerae anicteric] Neck: No JVD/HJR, no thyromegaly or lymphadenopathy noted. No carotid bruit appreciated Cardiac: [Regular rate and rhythm.] [No murmur rub or gallop.] Lungs: [Clear to auscultation without accessory muscle use to assist the respiratory pattern.] Abdomen: Soft, bowel sounds normoactive. Nontender and nondistended. No abdominal bruit or thrill noted. No masses noted. Musculoskeletal: No fluid collection. Decreased range of motion is noted. Extremities: Right groin soft, free of hematoma or bruit. No clubbing, cyanosis noted. [ No edema noted.] Upper extremity pulses 2+. Lower extremity pulses 2+. Capillary refill less than 3 seconds. Skin: No unusual lesions or rashes. No skin breakdown appreciated. Neuro: Awake, alert and oriented 3. Moves all extremities well without hemiparesis or paralysis. No essential tremor is appreciated. Discharge Results Labs on day of discharge: Labs from last 24 hours 11/04/16 11/04/16 11/04/16 05:33 05:33 05:33 WBC 5.4 RBC 4.04 Hgb 11.4 L Hct 35.1 L MCV 86.9 L MCH 28 MCHC 32.5 RDW 14.4 Plt Count 93 L MPV 11.2 Neut % (Auto) 68.7 Lymph % (Auto) 17.9 L Swift % (Auto) 9.2 Eos % (Auto) 3.0 Baso % (Auto) 0.6 Neut # (Auto) 3.7 Lymph # (Auto) 1.0 L Swift # (Auto) 0.5 Eos # (Auto) 0.2 Baso # (Auto) 0.0 Immature Gran % 0.6 Nucleated RBC % 0.0 Immature Gran # 0.03 Nucleated RBCs # 0.00 Platelet Estimate Decreased Hypochromasia 1+ Elliptocytes Few Morphology Comment INR 1.8 PT Patient/Control Mix 19.6 Sodium 145 Potassium 4.2 Chloride 108 H Carbon Dioxide 27 Anion Gap 14.2 BUN 32 H Creatinine 1.40 H GFR Calculation 68 BUN/Creatinine Ratio 22.00 H Glucose 112 H Calculated Osmolality 295.7 Calcium 8.4 L - Imaging and Cardiology Cardiology Procedure: report reviewed by me Procedure: Chest x-ray: report reviewed by me DS: Provider Date of admission: 11/03/16 12:24 Primary care physician: . No PCP Attending physician on admission: Yessi Pollock DO Consults: Dr. James Discharging clinician: Lanie Winkler NP Expected date of discharge: 11/04/16 <Crystal Batista - Last Filed: 11/04/16 20:46> Hospital Course - Hospital Course Hospital Course: I have personally interviewed and evaluated the patient, reviewed the chart and discussed medical decision-making with Practitioner Cathi. I have read this note and agree with her documentation here in. Diagnosis - Discharge Diagnosis (1) Ventricular tachycardia Status: Resolved (2) AICD discharge Status: Resolved (3) Hypotension Status: Resolved (4) Nonischemic cardiomyopathy Status: Chronic (5) Atrial fibrillation Status: Chronic (6) Chronic anticoagulation Status: Chronic (7) Renal insufficiency Status: Chronic
[2016-11-04 11:30] VITALS: BP 118/71
[2016-11-04] MEDS ORDERED: WARFARIN 3 MG TABLET PO SCH (18:00)
== END 2016-11-04 13:40 | disposition home or self-care (01) | DRG 287 ==
LOC: N.ED 16:36 → N.EDINP 16:36 → N.TELEN 19:10
PROVIDERS: ADMIT Internal Medicine Cardiovascular Disease; ATTEND Internal Medicine Cardiovascular Disease
PROC: CLCCHCL (ICD-10-PCS; 2016-11-03 16:45)

== ENCOUNTER 2016-12-24 10:33 | Inpatient (IN) ==
[2016-12-24] MEDS ORDERED: AMIODARONE INJ 150 MG in DEXTROSE 5% 100 ML IV ONE (11:12)
[2016-12-24 11:17] LABS: Basophils % 0.4 % (0.0-0.8); Eosinophils # 0.1 10*3/uL (0.0-0.87); Eosinophils % 0.7 % (0.00-10.9); Hematocrit 39.5 VOL% (42.0-52.0); Hemoglobin 12.4 GM/DL (14.0-18.0); Immature Granulocytes % 0.6 %; Immature Granulocytes Absolute 0.04 #; Lymphocytes # 0.7 10*3/uL (1.4-4.0); Lymphocytes % 9.9 % (21.2-54.2); Mean Corpuscular HGB Conc 31.4 GM/DL (32-36); Mean Corpuscular Hemoglobin 26 PG (27-34); Mean Corpuscular Volume 83.5 FL (87-102); Mean Platelet Volume 10.6 FL (9.6-12.0); Monocytes # 0.7 10*3/uL (0.11-0.8); Monocytes % 9.7 % (1.7-12.7); Neutrophils # 5.5 10*3/uL (1.4-7.4); Neutrophils % 78.7 % (38.7-73.9); Platelet Count 140 T/CUMM (130-400); Red Blood Count 4.73 MC/CUMM (3.8-5.5); Red Cell Distribution Width 15.9 % (9.3-17.3)
[2016-12-24 11:26] LABS: Barbiturates Screen,Urine Negative (Negative); Benzodiazepines Screen,Urine Negative (Negative); Cannabinoid Screen,Urine Negative (Negative); Opiate Screen,Urine Negative (Negative); Phencyclidine Screen,Urine Negative (Negative)
--- NOTE | 2016-12-24 11:29 | XRay Report ---
Exam: XR chest 1V portable Date: 12/24/2016 11:13 AM Indication: Cardiomyopathy Comparison: 10/31/2016 Technical: AP portable Findings: Cardiomegaly present with a cardiac pacemaker defibrillator device and a left-sided approach with the right ventricular lead. Mild interstitial alveolar densities present in the lung rodriguez with no obvious pneumothorax. ASVD is present. External cardiac leads are present. Tiny effusions are present. Impression: Cardiomegaly with mild interstitial alveolar edema and stable persistent cardiac pacing device. PROCEDURE INTERPRETED AT [facility] DEPARTMENT OF RADIOLOGY Final Report Signed by: Dr. Byron Copeland
[2016-12-24] MEDS ORDERED: AMIODARONE INJ 450 MG in DEXTROSE 5% 241 ML IV SCH ×2 (11:30→22:00)
--- NOTE | 2016-12-24 11:40 | Emergency Department Note ---
Emil Finch Gwan, am scribing for, and in the presence of, Pj Frost MD 11:11 . Margot Finch James D, MD, personally performed the services described in this documentation, ascribed by Shashank Stein in my presence, and it is both accurate and complete . Arrival - Arrival Chief Complaint: Arrhythmia/Palpitations Stated Complaint: dififulator ED Nursing Triage Note: Patient sent from [facility]-family reports that patient's defibrillator has fired 21 times since last Wednesday. Reports that he has been shocked three times this morning. Denies chest pain. +SOB. Mode of Arrival: Wheelchair Limitations: No Limitations Source: Patient, Family, Old Records Reviewed, RN Notes Reviewed - History of Present Illness HPI Narrative: Patient is a 81 y/o male who presents to the ED via [facility] for further evaluation of defibrillator firing off. Pt has a PMHx of pacemaker, CHF/ nonischemic cardiomyopathy, CAD, VT/V fib and HTN. Patient stated that he is followed by Dr. Granado and that he was present in office 12/16/2016 for a check of his device with negative results. Patient then noted that right before defibrillator fires off, he has associated sxs of getting lightheaded and SOB that is worse than usual. Per note, pt's Amiodarone was increased to 200mg 3x a day on 12/18/2016. Family stated that after appointment at Dr. Granado, pt received a shock while on the way home. This prompted family to call Dr. Granado office. Family was inferred then that it was nothing to worry abut and that the device was acting appropriately. Family continued to say that after then, pt's defibrillator has been going off regularly. Patient stated that he received three shocks this morning. This prompted his visit to the ED for further evaluation. Family confirmed that he contacted Dr. Granado office yesterday and was told that pt's device went off 21 times since last Wednesday. Patient confirmed that he had device put in 2007 but he denies any chest pain. While in ED, pt's defibrillator went off. No other problems/complaints reported in ED. Onset (ago): day(s) Consistency: constant Severity: moderate Allergies/Adverse Reactions: Allergies Allergy/AdvReac Type Severity Reaction Status Date / Time diazepam [From Valium] Allergy Unknown/Unable Verified 10/31/16 16:45 to obtain Home Medications: Home Medications Medication Instructions Recorded Confirmed Type Sertraline [Zoloft] 50 mg PO DAILY 10/31/16 12/24/16 History Simvastatin 40 mg PO BEDTIME 10/31/16 12/24/16 History Ascorbic Acid [Vitamin C] 1,000 mg PO DAILY 11/01/16 12/24/16 History Carvedilol 25 mg PO BID 11/01/16 12/24/16 History Cholecalciferol [Vitamin D3] 2,000 unit PO DAILY 11/01/16 12/24/16 History Cyanocobalamin (Vitamin B-12) 1,000 mcg PO DAILY 11/01/16 12/24/16 History [Vitamin B-12] Spironolactone [Aldactone] 25 mg PO DAILY 11/01/16 12/24/16 History Lisinopril [Prinivil] 2.5 mg PO DAILY #30 tablet 11/04/16 12/24/16 Rx Warfarin [Coumadin] 2 mg PO DAILY@1800 #30 tablet 11/04/16 12/24/16 Rx Amiodarone Tab [Cordarone Tab] 200 mg PO BID 12/24/16 12/24/16 History Aspirin [Aspirin EC] 81 mg PO DAILY 12/24/16 12/24/16 History Digoxin Tab [Lanoxin Tab] 0.125 mg PO DAILY 12/24/16 12/24/16 History Docusate Sodium Cap [Colace Cap] 100 mg PO BID 12/24/16 12/24/16 History Furosemide Tab [Lasix Tab] 80 mg PO BID DIURETIC 12/24/16 12/24/16 History Levothyroxine Tab [Synthroid Tab] 200 mcg PO DAILY 12/24/16 12/24/16 History Melatonin 3 mg PO BEDTIME 12/24/16 12/24/16 History Pantoprazole Sodium 40 mg PO DAILY 12/24/16 12/24/16 History Trazodone HCl 100 mg PO BEDTIME 12/24/16 12/24/16 History Review of System - Review of System 12 point system: reviewed and no additional remarkable complaints except as stated - Review of System Constitutional: Present: as per HPI, other (defibrillator firing off). Absent: chills, fever Eyes: Absent: discharge Head/Ears/Nose/Throat: Absent: earache Respiratory: Present: as per HPI, other (sob). Absent: cough Cardiovascular: Absent: chest pain Gastrointestinal: Absent: abdominal pain, nausea Genitourinary male: Absent: urgency, dysuria, frequency Musculoskeletal: Absent: arm pain, leg pain, neck pain Medical,Surgical,& Family Hx - Medical History Cardio: History of: Cardiac Dysrhythmia (VT/V. fib. Also reports a history of chronic atrial fibrillation.), CHF (Nonischemic cardiomyopathy), CAD, Hypertension, Pacemaker (ICD), Cardiovascular Problems (Defibrillator with history of risky previously with voltage shocks and anti) Musculoskeletal: No history of: Amputation - Surgical History Cardiac Surgeries: Sugical HX of: Cardiac Catheterization (negative), Internal Defibrillator Thoracic Surgeries: Patient denies;: Organ Transplant, Lobectomy HEENT Surgeries: Patient denies: Tonsilectomy & Adenoidectomy - Social History Smoking Status: Never smoker Frequency of Alcohol Use: None Type of Drug Use: None Exam Physical Examination: GENERAL: This is a white male in no apparent distress. VITAL SIGNS: HEENT: Head is normocephalic and atraumatic. Pupils are equally round and reactive to light. Extraocular movement are intact. Oropharynx is benign with moist mucous membranes. NECK: Neck is soft and supple without tenderness. There are no masses. There is no lymphadenopathy. LUNGS: Lungs are clear to auscultation bilaterally. Chest rises symmetrically. There is no chest wall tenderness. CV: Heart is regular rate and rhythm without murmurs, rubs, or gallops. ABDOMEN: Abdomen is soft, non-tender to palpation. There are no abnormal masses palpated. There is no organomegaly. Bowel sounds are present and active. SKIN: Skin is warm and dry. No rash. EXTREMITIES: Patient has full range of motion without tenderness. There is no pedal edema. NEUROLOGIC: Awake, alert, and oriented x4. Cranial nerves II through XII are grossly intact. There are no motorsensory deficits. PSYCHIATRIC: Normal affect. Normal mood. Vital Signs: Vital Signs Temperature 98.6 F 12/24/16 10:51 Pulse Rate 47 L 12/24/16 11:30 Respiratory Rate 25 H 12/24/16 11:30 Blood Pressure 92/52 12/24/16 11:30 O2 Sat by Pulse Oximetry 96 12/24/16 11:30 Course Course Narrative: Patient had pacemaker interrogated. Patient's V. fib was preceded by bradycardia. In accordance with Dr. Alatorre's wishes single type pacemaker will be read increased to 60. Patient will be placed on amiodarone bolus and infusion. Patient will be admitted to the CCU. - Consultations Consultation #1: Discussed with Dr. Alatorre. Patient will be admitted to his service. Initial orders written for him. He will assume patient's care upon admission to the CCU. Time: 11:38 Results - Labs CBC & BMP: 12/24/16 11:01 Lab Results: I have reviewed the patients labs Labs: Laboratory Tests 12/24/16 12/24/16 11:00 11:01 WBC 7.0 RBC 4.73 Hgb 12.4 L Hct 39.5 L MCV 83.5 L MCH 26 L MCHC 31.4 L Plt Count 140 Neut % (Auto) 78.7 H Lymph % (Auto) 9.9 L Lymph # (Auto) 0.7 L Urine Opiates Screen Negative Ur Barbiturates Screen Negative Ur Phencyclidine Scrn Negative U Amphetamine/Methamph Negative U Benzodiazepines Scrn Negative U Cocaine Metab Screen Negative U Cannabinoids Screen Negative - EKG EKG results: interpreted by ERMD - Impressions EKG: Sinus bradycardia with first-degree AV block, rate 46, ST segment depression laterally consistent with ischemia. While patient was being monitored in the emergency department he did develop V. fib and was appropriately cardioverted by his AICD. - Diagnostic Findings Procedure: Chest x-ray: report reviewed by me (Cardiomegally with mild interstitial alveloar edema and stable persistent cardiac pacing device.) Disposition Clinical Impression: Ventricular fibrillation, Cardiomyopathy Case discussed with: patient, patient's family
[2016-12-24] MEDS ORDERED: MAGNESIUM SULF RIDER 2 GM in PREMIX 1 EACH IV PRN ×3 (11:43→15:19)
[2016-12-24] MEDS ORDERED: MAGNESIUM SULF RIDER 4 GM in PREMIX 1 EACH IV PRN ×3 (11:43→15:19)
[2016-12-24 11:47] LABS: Free T4 (Free Thyroxine) 1.82 NG/DL (0.76-1.46); Magnesium 2.5 MG/DL (1.8-2.4)
[2016-12-24 11:54] LABS: Albumin 3.9 G/DL (3.4-5.0); Bilirubin,Total 1.9 MG/DL (0.2-1.0); Calcium 8.4 MG/DL (8.5-10.1); Osmolality,Calculated 283.4 MOS/KG (273-304); Potassium 3.7 MMOL/L (3.5-5.1); Thyroid Stimulating Hormone 3.71 uIU/ml (0.358-3.74)
[2016-12-24 11:56] LABS: Troponin I Only 0.362 NG/ML (0.00-0.045)
[2016-12-24] MEDS ORDERED: AMIODARONE 450 MG/9 ML VIAL IV ONE ×2 (12:09→22:37)
[2016-12-24] MEDS ORDERED: AMIODARONE 150 MG/3 ML VIAL ONE (12:09)
--- NOTE | 2016-12-24 12:55 | EKG Report ---
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
[2016-12-24] MEDS ORDERED: SODIUM CHLORIDE 0.9% 1,000 ML IV SCH (13:26)
[2016-12-24] MEDS ORDERED: ONDANSETRON 4 MG/2 ML VIAL IV PRN (15:19)
--- NOTE | 2016-12-24 15:26 | Cardiology History & Physical ---
Assessment and Plan (1) Cardiomyopathy Status: Acute Assessment and plan: Patient is currently compensated without overt heart failure. He has significant fatigue and we are going to attempt adjusting his meds to see if we can improve that. Current Visit: Yes (2) Ventricular fibrillation Status: Acute Current Visit: Yes (3) Atrial fibrillation Status: Chronic Current Visit: No Qualifiers: Atrial fibrillation type: permanent Qualified Code(s): I48.2 - Chronic atrial fibrillation (4) Chronic anticoagulation Status: Chronic Current Visit: No (5) ICD (implantable cardioverter-defibrillator) discharge Status: Chronic Current Visit: No (6) Nonischemic cardiomyopathy Status: Chronic Current Visit: No (7) AICD discharge Status: Resolved Assessment and plan: With his bradycardia arrhythmias I wonder whether that is what is exacerbating his V. fib. We are holding his Lanoxin number can cut back on his Coreg and hold his trazodone at this point. I have him on intravenous amiodarone hopefully can switch him to 400 twice daily tomorrow Current Visit: No History of Present Illness Chief complaint: Recurrent V. fib events requiring defibrillator countershock History of present illness: Mr. Taylor is a 81 year old male who sees Dr. Granado as his primary mirror maker. He has renal insufficiency and a nonischemic cardiomyopathy. He says that he felt generally well until about 3 weeks ago when he began to complain of severe fatigue. He over the last several days has had 21 V. fib events shocks to a atrial fibrillation as best I can tell. He has been started on intravenous amiodarone and was at a base paced rate of 40 and he was pacing at a very slow heart rate and we are going to increase his right and adjust his medications. He does not give me a history of any problems related to active angina. He complains of very sore shoulder related to multiple shocks but otherwise is free of pain. He is not dyspneic and has been stable since we have adjusted his right upward. He is for continued close observation in CCU setting while we adjust his meds. Home Medications Medication Instructions Recorded Confirmed Type Sertraline [Zoloft] 50 mg PO DAILY 10/31/16 12/24/16 History Simvastatin 40 mg PO BEDTIME 10/31/16 12/24/16 History Ascorbic Acid [Vitamin C] 1,000 mg PO DAILY 11/01/16 12/24/16 History Carvedilol 25 mg PO BID 11/01/16 12/24/16 History Cholecalciferol [Vitamin D3] 2,000 unit PO DAILY 11/01/16 12/24/16 History Cyanocobalamin (Vitamin B-12) 1,000 mcg PO DAILY 11/01/16 12/24/16 History [Vitamin B-12] Spironolactone [Aldactone] 25 mg PO DAILY 11/01/16 12/24/16 History Lisinopril [Prinivil] 2.5 mg PO DAILY #30 tablet 11/04/16 12/24/16 Rx Warfarin [Coumadin] 2 mg PO DAILY@1800 #30 tablet 11/04/16 12/24/16 Rx Amiodarone Tab [Cordarone Tab] 200 mg PO BID 12/24/16 12/24/16 History Aspirin [Aspirin EC] 81 mg PO DAILY 12/24/16 12/24/16 History Digoxin Tab [Lanoxin Tab] 0.125 mg PO DAILY 12/24/16 12/24/16 History Docusate Sodium Cap [Colace Cap] 100 mg PO BID 12/24/16 12/24/16 History Furosemide Tab [Lasix Tab] 80 mg PO BID DIURETIC 12/24/16 12/24/16 History Levothyroxine Tab [Synthroid Tab] 200 mcg PO DAILY 12/24/16 12/24/16 History Melatonin 3 mg PO BEDTIME 12/24/16 12/24/16 History Pantoprazole Sodium 40 mg PO DAILY 12/24/16 12/24/16 History Trazodone HCl 100 mg PO BEDTIME 12/24/16 12/24/16 History Allergies Allergy/AdvReac Type Severity Reaction Status Date / Time diazepam [From Valium] Allergy Unknown/Unable Verified 10/31/16 16:45 to obtain Medical,Surgical,& Family Hx - Medical History Cardio: History of: Cardiac Dysrhythmia (VT/V. fib. Also reports a history of chronic atrial fibrillation.), CHF (Nonischemic cardiomyopathy), CAD, Hypertension, Pacemaker (ICD), Cardiovascular Problems (Defibrillator with history of risky previously with voltage shocks and anti) Musculoskeletal: No history of: Amputation - Surgical History Cardiac Surgeries: Sugical HX of: Cardiac Catheterization (negative), Internal Defibrillator Thoracic Surgeries: Patient denies;: Organ Transplant, Lobectomy HEENT Surgeries: Patient denies: Tonsilectomy & Adenoidectomy - Social History Smoking Status: Never smoker Frequency of Alcohol Use: None Type of Drug Use: None Cardiology Physical Exam - Constitutional Vitals: Vital Signs Temp Pulse Resp BP Pulse Ox 97.3 F L 60 17 77/46 100 12/24/16 13:26 12/24/16 15:11 12/24/16 15:11 12/24/16 15:11 12/24/16 15:11 Intake and Output 12/23/16 12/24/16 12/24/16 23:59 07:59 15:59 Intake Total 0 / 0 Output Total 300 / 300 Balance -300 / -300 Intake: Oral 0 / 0 Output: Urine 300 / 300 Other: Voiding Method Urinal Weight 123 kg Patient Weight 12/24/16 23:59 Weight 123 kg Exam: Physical examination: General: The patient is awake and alert and oriented X 3. Mood and affect are normal. HEENT: Normocephalic, sclera are clear there are no lid xanthelasmas noted. Oral mucosa is free of cyanosis or pallor. Neck: The neck is supple without JVD. Carotid upstrokes are normal volume and amplitude. There is no audible bruit. There is no palpable thyroid. Trachea is midline. Chest: Lungs: The patient is comfortable at rest without intercostal retractions or abdominal breathing. There are no adventitial sounds rales rubs rhonchi or wheezes noted. Cardiovascular: The PMI is nondisplaced. No palpable thrill S3 or S4. There is a regular rate and rhythm with no murmur rub or gallop noted. Dorsalis pedis posterior tibial pulses are 1+ and equal and femoral pulses are 2+ and equal bilaterally. Abdomen: Abdomen is soft and nontender with normal active bowel sounds. There is no palpable mass or organomegaly noted. There is no midline bruit. Extremities exam: There is no cyanosis clubbing or edema. Skin: Skin is warm and dry without ecchymosis or urticaria or skin rash. There are no palpable nodules. Musculoskeletal: There is no kyphosis or scoliosis noted. Result/EKG - Labs CBC & BMP: 12/24/16 11:01 12/24/16 11:01 - EKG EKG results: interpreted by me (EKG reveals atrial fibrillation with currently a paced rhythm heart rate of 60) Quality Measures - VTE Contraindication to Pharmacological VTE Prophylaxis: High Risk of Bleeding
[2016-12-24] MEDS ORDERED: DEXTROSE 5% NACL 0.45% 1,000 ML IV SCH (15:30)
[2016-12-24] MEDS ORDERED: SODIUM CHLORIDE 0.9% 500 ML IV ONE (15:30)
[2016-12-24] MEDS: MORPHINE 2 MG/1 ML SYRINGE IV PRN ×2 (16:08→21:10)
[2016-12-24] MEDS: FUROSEMIDE 80 MG TABLET PO SCH (16:09)
[2016-12-24] MEDS: DEXTROSE 5% NACL 0.45% 1,000 ML IV SCH (16:09)
[2016-12-24 16:54] LABS: INR 3.3
[2016-12-24 17:09] LABS: PT Patient Result 37.6 SECS
[2016-12-24] MEDS: WARFARIN 2 MG TABLET PO SCH (17:41)
[2016-12-24] MEDS: MELATONIN 3 MG TABLET PO SCH (21:10)
[2016-12-24] MEDS: SIMVASTATIN 40 MG TABLET PO SCH (21:10)
[2016-12-24] MEDS: DOCUSATE SODIUM 100 MG CAPSULE PO SCH (21:10)
[2016-12-24] MEDS: CARVEDILOL 25 MG TABLET PO SCH (21:10)
[2016-12-25] MEDS: DEXTROSE 5% NACL 0.45% 1,000 ML IV SCH (05:18)
[2016-12-25 05:54] LABS: Basophils % 0.8 % (0.0-0.8); Eosinophils # 0.1 10*3/uL (0.0-0.87); Eosinophils % 2.3 % (0.00-10.9); Hematocrit 36.8 VOL% (42.0-52.0); Hemoglobin 11.2 GM/DL (14.0-18.0); Immature Granulocytes % 0.6 %; Immature Granulocytes Absolute 0.03 #; Lymphocytes # 0.8 10*3/uL (1.4-4.0); Lymphocytes % 15.1 % (21.2-54.2); Mean Corpuscular HGB Conc 30.4 GM/DL (32-36); Mean Corpuscular Hemoglobin 26 PG (27-34); Mean Platelet Volume 11.4 FL (9.6-12.0); Monocytes # 0.6 10*3/uL (0.11-0.8); Monocytes % 10.8 % (1.7-12.7); Neutrophils # 3.7 10*3/uL (1.4-7.4); Neutrophils % 70.4 % (38.7-73.9); Platelet Count 132 T/CUMM (130-400); Red Blood Count 4.38 MC/CUMM (3.8-5.5); Red Cell Distribution Width 15.9 % (9.3-17.3); White Blood Count 5.3 T/CUMM (4-12)
[2016-12-25 06:30] LABS: Alanine Aminotransferase 28 U/L (16-61); Albumin 3.4 G/DL (3.4-5.0); Alkaline Phosphatase 39 U/L (45-117); Aspartate Amino Transferase 27 U/L (0-37); Calcium 8.3 MG/DL (8.5-10.1); Total Protein 5.8 G/DL (6.4-8.3)
[2016-12-25 06:31] LABS: Blood Urea Nitrogen 18 MG/DL (7-18); Glucose 137 MG/DL (74-106); Magnesium 2.5 MG/DL (1.8-2.4); Osmolality,Calculated 282.4 MOS/KG (273-304); Potassium 3.7 MMOL/L (3.5-5.1); Sodium 140 MMOL/L (136-145); Troponin I Only 0.311 NG/ML (0.00-0.045)
--- NOTE | 2016-12-25 06:57 | XRay Report ---
Portable chest Date: 12/25/2016 Clinical history: Shortness of breath Comparison: 12/24/2016 Technique: Portable AP sitting chest Findings: The heart is minimally smaller in size with stable left subclavian ventricular AICD. Decreased parenchymal findings at the right lung base with similar minimally progressive findings at the left lung base. Small pleural effusions. Stable mediastinum and osseous structures. Impression: The heart is minimally smaller size with stable left subclavian ventricular AICD. Reduced atelectasis/infiltration/edema at the right lung base with similar minimally progressive findings of the left lung base. Small pleural effusions. PROCEDURE INTERPRETED AT [facility] DEPARTMENT OF RADIOLOGY Final Report Signed by: Dr. Annemarie Kimball
--- NOTE | 2016-12-25 07:14 | EKG Report ---
Stationary ECG Study [facility] Test Date: 12/25/2016 7:13:40 AM Pat Name: JUAN R SHAVER Department: Room: 127 Gender: M Ergonomist: PIPER : 1935 Requested by: Jean Alatorre Order Number: [id number] Reading MD: ERNESTINA ASTORGA Intervals [place] Rate: 59 P: 999 DE: 0 QRS: -66 QRSD: 186 T: 120 QT: 504 QTc: 504 Interpretive Statements ELECTRONIC VENTRICULAR PACEMAKER SINUS BRADYCARDIA Electronically Signed On 12-25-16 17:23:25 CDT by ERNESTINA ASTORGA [id number]
[2016-12-25] MEDS: CHOLECALCIFEROL 1,000 UNIT TABLET PO SCH (08:40)
[2016-12-25] MEDS: SERTRALINE 50 MG TABLET PO SCH (08:40)
[2016-12-25] MEDS: ASCORBIC ACID 500 MG TABLET PO SCH (08:40)
[2016-12-25] MEDS: CYANOCOBALAMIN 500 MCG TABLET PO SCH (08:40)
[2016-12-25] MEDS: LISINOPRIL 10 MG TABLET PO SCH (08:41)
[2016-12-25] MEDS: PANTOPRAZOLE 40 MG TABLET PO SCH (08:41)
[2016-12-25] MEDS: CARVEDILOL 25 MG TABLET PO SCH ×2 (08:41→20:12)
[2016-12-25] MEDS: LEVOTHYROXINE 200 MCG TABLET PO SCH (08:41)
[2016-12-25] MEDS: DOCUSATE SODIUM 100 MG CAPSULE PO SCH ×2 (08:41→20:12)
[2016-12-25] MEDS: ASPIRIN EC 81 MG TABLET PO SCH (08:41)
[2016-12-25] MEDS: FUROSEMIDE 80 MG TABLET PO SCH ×2 (08:41→16:28)
[2016-12-25] MEDS: SPIRONOLACTONE 25 MG TABLET PO SCH (08:41)
[2016-12-25] MEDS ORDERED: MAGNESIUM SULF RIDER 2 GM in PREMIX 1 EACH IV PRN (09:22)
[2016-12-25] MEDS ORDERED: MAGNESIUM SULF RIDER 4 GM in PREMIX 1 EACH IV PRN (09:22)
--- NOTE | 2016-12-25 09:24 | Cardiology Progress Note ---
Davide Finch Vanessa, RN, am scribing for, and in the presence of, Jean Alatorre MD 09:24. Assessment and Plan - Time spent with patient Time spent with patient: Greater than 30 minutes (1) Ventricular fibrillation Status: Acute Current Visit: Yes (2) Nonischemic cardiomyopathy Status: Chronic Current Visit: No (3) AICD discharge Status: Resolved Current Visit: No (4) Hypertension Status: Acute Current Visit: Yes Cardiology - PN: Subj Interval history: PRIMARY WOOD BUFFER: DR. BUBBA GRANADO PCP: DR. DEMETRIA ALEMAN SUMMARY: Mr. Taylor is a 81-year-old white male routinely followed by Dr. Granado. Past medical history includes nonischemic cardiomyopathy, acute on chronic systolic congestive heart failure with decreased ejection fraction 35%, chronic atrial fibrillation, hypothyroidism, hyperlipidemia, and chronic kidney disease stage III. Patient was evaluated by Dr. Bubba Granado in clinic on 12/16/16 with complaints of multiple ICD shocks related to ventricular tachycardia. Interrogation of device negative for finding. His amiodarone dosage had been decreased today before, and at that visit he reported recent worsening of peripheral edema, but he had no orthopnea or PND. Lasix was increased to 80 mg twice daily, and amiodarone was increased to 200 mg twice daily. Lab work obtained that day unremarkable for source of complaint. He presented to the emergency room on 12/24 complaining of severe fatigue and multiple ICD shocks for ventricular fibrillation. Patient was admitted to CCU prior cardiology service for further observation and treatment. AICD device noted to be at a base paced rate of 40. Device interrogated prior [employer] rep morning of admission, pacing rate increased. It appeared ICD shocks were in response to atrial fibrillation. Patient was also initiated on IV amiodarone. Lanoxin was held. Digoxin level 1.5 at admission. At time of admission, patient denied S/ S of ACS or angina. He also had no overt signs or symptoms of heart failure and appears to be well compensated. He did report some dizziness and shortness of breath associated with AICD shocks. DECEMBER 25, 2016: Mr. Taylor is seen and examined in the CCU this morning. Overnight and this morning, he denies further AICD shocks. Denies pain or shortness of breath, but does seem slightly short of breath with conversation. He is a little upset this morning that his primary credit authorizer is not in the hospital this week. He has ventricularly pacing this morning at 60. Systolic BP ranging 80-105 mmHg with MAP 65-85. Labs reviewed. H&H is stable. Potassium 3.7. Magnesium 2.5. Creatinine is 1.4 with a GFR of 69. Troponin level 0.311. BNP elevated 1732. Patient has had no further ICD shocks. We will continue him at his current paced rate. We are adjusting his meds and he may be able to go back on his Lanoxin once we get a feel for what his heart rate is going to be. Exam (Progress Note) - Constitutional Vitals: Period Temp Pulse Resp BP Sys/Leigh Pulse Ox Last 24 Hr 97.1 F-97.6 F 56-82 12-28 77-107/46-72 92-100 Exam: General: The patient is awake and alert and oriented X 3. Mood and affect are normal. HEENT: Normocephalic, sclera are clear there are no lid xanthelasmas noted. Oral mucosa is free of cyanosis or pallor. Neck: The neck is supple without JVD. Carotid upstrokes are normal volume and amplitude. There is no audible bruit. There is no palpable thyroid. Trachea is midline. Chest: Lungs: The patient is comfortable at rest without intercostal retractions or abdominal breathing. There are no adventitial sounds rales rubs rhonchi or wheezes noted. Cardiovascular: The PMI is nondisplaced. No palpable thrill S3 or S4. There is a regular rate and rhythm with no murmur rub or gallop noted. Dorsalis pedis posterior tibial pulses are 1+ and equal and femoral pulses are 2+ and equal bilaterally. Abdomen: Abdomen is soft and nontender with normal active bowel sounds. There is no palpable mass or organomegaly noted. There is no midline bruit. Extremities exam: There is no cyanosis clubbing or edema. Skin: Skin is warm and dry without ecchymosis or urticaria or skin rash. There are no palpable nodules. Musculoskeletal: There is no kyphosis or scoliosis noted. Result/EKG - Labs CBC & BMP: 12/25/16 05:28 12/25/16 05:28 Lab Results: I have reviewed the past 24 hour labs Labs: Laboratory Results - last 24 hr 12/24/16 12/24/1612/24/17 15:42 16:30 23:15 WBC RBC Hgb Hct MCV MCH MCHC RDW Plt Count MPV Neut % (Auto) Lymph % (Auto) [place] % (Auto) Eos % (Auto) Baso % (Auto) Neut # (Auto) Lymph # (Auto) [place] # (Auto) Eos # (Auto) Baso # (Auto) Immature Gran % Nucleated RBC % Immature Gran # Nucleated RBCs # INR 3.3 PT Patient/Control Mix 37.6 D Sodium Potassium Chloride Carbon Dioxide Anion Gap BUN Creatinine GFR Calculation BUN/Creatinine Ratio Glucose Calculated Osmolality Calcium Magnesium Total Bilirubin AST ALT Alkaline Phosphatase Total Creatine Kinase CK-MB (CK-2) Troponin I 0.306 H 0.288 H B-Natriuretic Peptide Total Protein Albumin Globulin Albumin/Globulin Ratio 12/25/16 12/25/16 12/25/16 05:28 05:28 05:28 WBC 5.3 RBC 4.38 Hgb 11.2 L Hct 36.8 L MCV 84.0 L MCH 26 L MCHC 30.4 L RDW 15.9 Plt Count 132 MPV 11.4 Neut % (Auto) 70.4 Lymph % (Auto) 15.1 L [place] % (Auto) 10.8 Eos % (Auto) 2.3 Baso % (Auto) 0.8 Neut # (Auto) 3.7 Lymph # (Auto) 0.8 L [place] # (Auto) 0.6 Eos # (Auto) 0.1 Baso # (Auto) 0.0 Immature Gran % 0.6 Nucleated RBC % 0.0 Immature Gran # 0.03 Nucleated RBCs # 0.00 INR PT Patient/Control Mix Sodium 140 Potassium 3.7 Chloride 101 Carbon Dioxide 31 Anion Gap 11.7 BUN 18 Creatinine 1.40 H GFR Calculation 69 BUN/Creatinine Ratio 12.00 Glucose 137 H Calculated Osmolality 282.4 Calcium 8.3 L Magnesium 2.5 H Total Bilirubin 1.40 H AST 27 ALT 28 Alkaline Phosphatase 39 L Total Creatine Kinase 81 CK-MB (CK-2) 2.3 Troponin I 0.311 H B-Natriuretic Peptide 1732 H Total Protein 5.8 L Albumin 3.4 Globulin 2.4 Albumin/Globulin Ratio 1.4 - Diagnostic Findings Procedure: Chest x-ray: image reviewed by me, report reviewed by me (12/24/16: Reduced atelectasis, infiltration, edema at right lung base. Small pleural effusions. Stable position of AICD.) - EKG EKG results: interpreted by me, no acute changes Quality Measures - VTE Contraindication to Pharmacological VTE Prophylaxis: High Risk of Bleeding Landry Finch Wesley, MD, personally performed the services described in this documentation, ascribed by Radha Augustine RN in my presence, and it is both accurate and complete .
[2016-12-25] MEDS: AMIODARONE 200 MG TABLET PO SCH ×2 (09:44→20:12)
--- NOTE | 2016-12-25 14:49 | Physician Query Form ---
CLICK EDIT DOCUMENT TO SELECT QUERY ANSWER --> OK --> SIGN Sherrie Christiansen RN Clinical Head Of Science W) [phone] (f) [phone] [email or web address]: Make your selection(s) from the choices in EACH section by typing an "x" and enter comments in the comment section. Please use your independent medical judgment in providing your response. This request does not imply that any particular answer is desired or expected. CLINICAL INDICATORS: (Providers should not edit this section) Based on documentation of 'renal insufficiency". Creatinine on admission of 1.80 with a GFR of 50 and decreased to 1.40. Pt. treated with IV fluid bolus of Normal Saline. Pt. has documented chronic kidney disease stage 3. Clarify which of the following most accurately represents the patient's renal status: ( ) Acute kidney injury (non-traumatic) ( ) Acute renal failure ( ) Acute renal failure with underlying Chronic Kidney Disease (CKD) - please provide stage below ( X) CKD - please provide stage below ( ) Other, please specify: ( ) Clinically unable to determine Chronic Kidney Disease Stages Source: National Kidney Disease Foundation ( ) Stage I (eGFR > or = 90) ( ) Stage II (eGFR 60 - 89) (X ) Stage III (eGFR 30 - 59) ( ) Stage IV (eGFR 15 - 29) ( ) Stage V (eGFR < 15 or dialysis) COMMENTS: PLEASE ALSO DOCUMENT RESPONSE IN PROGRESS NOTES AND/OR DISCHARGE SUMMARY Use of terms such as suspected, likely, or probable (associated with a specific diagnosis that is being evaluated, monitored, or treated as if it exists) are acceptable and can be restated in the discharge summary if not ruled out. MTDD
[2016-12-25] MEDS: WARFARIN 2 MG TABLET PO SCH (17:04)
[2016-12-25] MEDS: MELATONIN 3 MG TABLET PO SCH (20:11)
[2016-12-25] MEDS: SIMVASTATIN 40 MG TABLET PO SCH (20:12)
[2016-12-26 05:39] LABS: Basophils % 0.7 % (0.0-0.8); Eosinophils # 0.1 10*3/uL (0.0-0.87); Eosinophils % 1.5 % (0.00-10.9); Hematocrit 36.2 VOL% (42.0-52.0); Hemoglobin 11.3 GM/DL (14.0-18.0); Immature Granulocytes % 0.7 %; Immature Granulocytes Absolute 0.04 #; Lymphocytes # 0.8 10*3/uL (1.4-4.0); Lymphocytes % 12.8 % (21.2-54.2); Mean Corpuscular HGB Conc 31.2 GM/DL (32-36); Mean Corpuscular Hemoglobin 26 PG (27-34); Mean Corpuscular Volume 82.5 FL (87-102); Mean Platelet Volume 11.1 FL (9.6-12.0); Monocytes # 0.7 10*3/uL (0.11-0.8); Monocytes % 11.3 % (1.7-12.7); Neutrophils # 4.5 10*3/uL (1.4-7.4); Platelet Count 139 T/CUMM (130-400); Red Blood Count 4.39 MC/CUMM (3.8-5.5); Red Cell Distribution Width 15.8 % (9.3-17.3); White Blood Count 6.1 T/CUMM (4-12)
[2016-12-26 06:09] LABS: Calcium 7.9 MG/DL (8.5-10.1); Magnesium 2.3 MG/DL (1.8-2.4); Osmolality,Calculated 283.4 MOS/KG (273-304); Potassium 3.5 MMOL/L (3.5-5.1)
--- NOTE | 2016-12-26 09:08 | EKG Report ---
Stationary ECG Study [facility] Test Date: 12/26/2016 9:07:44 AM Pat Name: JUAN R SHAVER Department: Room: 127 Gender: M Warp Clamper: : 1935 Requested by: Jean Alatorre Order Number: [id number] Reading MD: JEAN ALATORRE Intervals [place] Rate: 62 P: 999 ND: 0 QRS: -42 QRSD: 130 T: 154 QT: 340 QTc: 345 Interpretive Statements ELECTRONIC VENTRICULAR PACEMAKER ABNORMAL RHYTHM ECG Electronically Signed On 12-26-16 16:32:45 CDT by JEAN ALATORRE [id number]
[2016-12-26] MEDS: FUROSEMIDE 80 MG TABLET PO SCH ×2 (09:10→16:07)
[2016-12-26] MEDS: SERTRALINE 50 MG TABLET PO SCH (09:10)
[2016-12-26] MEDS: CHOLECALCIFEROL 1,000 UNIT TABLET PO SCH (09:11)
[2016-12-26] MEDS: ASCORBIC ACID 500 MG TABLET PO SCH (09:11)
[2016-12-26] MEDS: PANTOPRAZOLE 40 MG TABLET PO SCH (09:12)
[2016-12-26] MEDS: LEVOTHYROXINE 200 MCG TABLET PO SCH (09:12)
[2016-12-26] MEDS: CYANOCOBALAMIN 500 MCG TABLET PO SCH (09:12)
[2016-12-26] MEDS: CARVEDILOL 25 MG TABLET PO SCH ×2 (09:13→20:59)
[2016-12-26] MEDS: LISINOPRIL 10 MG TABLET PO SCH (09:13)
[2016-12-26] MEDS: AMIODARONE 200 MG TABLET PO SCH ×2 (09:14→20:54)
[2016-12-26] MEDS: ASPIRIN EC 81 MG TABLET PO SCH (09:14)
[2016-12-26] MEDS: DOCUSATE SODIUM 100 MG CAPSULE PO SCH ×2 (09:14→20:54)
[2016-12-26] MEDS: POTASSIUM CHLORIDE 20 MEQ TABLET PO PRN ×2 (09:15→10:51)
[2016-12-26] MEDS: SPIRONOLACTONE 25 MG TABLET PO SCH (09:15)
--- NOTE | 2016-12-26 09:17 | Cardiology Progress Note ---
Assessment and Plan (1) Ventricular fibrillation Status: Acute Assessment and plan: 12/26: No further V. fib events. He is tolerating medicine adjustments without problems. Current Visit: Yes (2) Nonischemic cardiomyopathy Status: Chronic Assessment and plan: 12/26: Patient continues stable and our plan will be to transfer him to the floor. Current Visit: No (3) AICD discharge Status: Resolved Assessment and plan: With his bradycardia arrhythmias I wonder whether that is what is exacerbating his V. fib. We are holding his Lanoxin number can cut back on his Coreg and hold his trazodone at this point. I have him on intravenous amiodarone hopefully can switch him to 400 twice daily tomorrow Current Visit: No (4) Hypertension Status: Acute Current Visit: Yes Cardiology - PN: Subj Interval history: Patient continues stable on current medications and a heart rate of 60 bpm. He feels well and is ready for discharge. His son is concerned about some the issues at the nursing center where he is being cared for and likely we will discharge him first of the week. He will be transferred to the floor. Exam (Progress Note) - Constitutional Vitals: Period Temp Pulse Resp BP Sys/Leigh Pulse Ox Last 24 Hr 97.5 F-98.5 F 60-63 9-25 90-114/53-87 90-99 Exam: General: The patient is awake and alert and oriented X 3. Mood and affect are normal. HEENT: Normocephalic, sclera are clear there are no lid xanthelasmas noted. Oral mucosa is free of cyanosis or pallor. Neck: The neck is supple without JVD. Carotid upstrokes are normal volume and amplitude. There is no audible bruit. There is no palpable thyroid. Trachea is midline. Chest: Lungs: The patient is comfortable at rest without intercostal retractions or abdominal breathing. There are no adventitial sounds rales rubs rhonchi or wheezes noted. Cardiovascular: The PMI is nondisplaced. No palpable thrill S3 or S4. There is a regular rate and rhythm with no murmur rub or gallop noted. Dorsalis pedis posterior tibial pulses are 1+ and equal and femoral pulses are 2+ and equal bilaterally. Abdomen: Abdomen is soft and nontender with normal active bowel sounds. There is no palpable mass or organomegaly noted. There is no midline bruit. Extremities exam: There is no cyanosis clubbing or edema. Skin: Skin is warm and dry without ecchymosis or urticaria or skin rash. There are no palpable nodules. Musculoskeletal: There is no kyphosis or scoliosis noted. Result/EKG - Labs CBC & BMP: 12/26/16 05:18 12/26/16 05:18 Labs: Laboratory Results - last 24 hr 12/26/16 12/26/16 05:18 05:18 WBC 6.1 RBC 4.39 Hgb 11.3 L Hct 36.2 L MCV 82.5 L MCH 26 L MCHC 31.2 L RDW 15.8 Plt Count 139 MPV 11.1 Neut % (Auto) 73.0 Lymph % (Auto) 12.8 L [place] % (Auto) 11.3 Eos % (Auto) 1.5 Baso % (Auto) 0.7 Neut # (Auto) 4.5 Lymph # (Auto) 0.8 L [place] # (Auto) 0.7 Eos # (Auto) 0.1 Baso # (Auto) 0.0 Immature Gran % 0.7 Nucleated RBC % 0.0 Immature Gran # 0.04 Nucleated RBCs # 0.00 Sodium 140 Potassium 3.5 Chloride 101 Carbon Dioxide 28 Anion Gap 14.5 BUN 21 H Creatinine 1.50 H GFR Calculation 64 BUN/Creatinine Ratio 14.00 Glucose 127 H Calculated Osmolality 283.4 Calcium 7.9 L Magnesium 2.3 Quality Measures - VTE Contraindication to Pharmacological VTE Prophylaxis: High Risk of Bleeding
[2016-12-26] MEDS ORDERED: WARFARIN 4 MG TABLET ONE (17:51)
[2016-12-26] MEDS: WARFARIN 2 MG TABLET PO SCH (18:08)
[2016-12-26] MEDS: MELATONIN 3 MG TABLET PO SCH (20:54)
[2016-12-26] MEDS: SIMVASTATIN 40 MG TABLET PO SCH (20:54)
[2016-12-27 05:17] LABS: Basophils % 0.4 % (0.0-0.8); Eosinophils # 0.1 10*3/uL (0.0-0.87); Eosinophils % 0.8 % (0.00-10.9); Hemoglobin 10.9 GM/DL (14.0-18.0); Immature Granulocytes % 0.5 %; Immature Granulocytes Absolute 0.04 #; Lymphocytes % 12.7 % (21.2-54.2); Mean Corpuscular HGB Conc 31.1 GM/DL (32-36); Mean Corpuscular Hemoglobin 25 PG (27-34); Mean Platelet Volume 11.1 FL (9.6-12.0); Monocytes # 0.8 10*3/uL (0.11-0.8); Monocytes % 11.1 % (1.7-12.7); Neutrophils # 5.6 10*3/uL (1.4-7.4); Neutrophils % 74.5 % (38.7-73.9); Platelet Count 143 T/CUMM (130-400); Red Blood Count 4.32 MC/CUMM (3.8-5.5); White Blood Count 7.5 T/CUMM (4-12)
[2016-12-27 05:45] LABS: Calcium 8.3 MG/DL (8.5-10.1); Magnesium 2.4 MG/DL (1.8-2.4); Osmolality,Calculated 285.3 MOS/KG (273-304); Potassium 3.9 MMOL/L (3.5-5.1)
[2016-12-27 07:59] VITALS: BP 149/74
--- NOTE | 2016-12-27 08:36 | EKG Report ---
Stationary ECG Study [facility] Test Date: 12/27/2016 7:44:08 AM Pat Name: JUAN R SHAVER Department: Room: 285 Gender: M Export Documents Clerk: : 1935 Requested by: Jean Alatorre Order Number: [id number] Reading MD: JEAN ALATORRE Intervals [place] Rate: 61 P: 999 DC: 0 QRS: -64 QRSD: 170 T: 133 QT: 505 QTc: 507 Interpretive Statements ELECTRONIC VENTRICULAR PACEMAKER ABNORMAL RHYTHM ECG Electronically Signed On 12-28-16 06:58:21 CDT by JEAN ALATORRE [id number]
[2016-12-27] MEDS: PANTOPRAZOLE 40 MG TABLET PO SCH (08:43)
[2016-12-27] MEDS: ASPIRIN EC 81 MG TABLET PO SCH (08:43)
[2016-12-27] MEDS: FUROSEMIDE 80 MG TABLET PO SCH (08:43)
[2016-12-27] MEDS: CARVEDILOL 25 MG TABLET PO SCH (08:43)
[2016-12-27] MEDS: SPIRONOLACTONE 25 MG TABLET PO SCH (08:43)
[2016-12-27] MEDS: LEVOTHYROXINE 200 MCG TABLET PO SCH (08:43)
[2016-12-27] MEDS: AMIODARONE 200 MG TABLET PO SCH (08:43)
[2016-12-27] MEDS: CYANOCOBALAMIN 500 MCG TABLET PO SCH (08:44)
[2016-12-27] MEDS: ASCORBIC ACID 500 MG TABLET PO SCH (08:44)
[2016-12-27] MEDS: CHOLECALCIFEROL 1,000 UNIT TABLET PO SCH (08:44)
[2016-12-27] MEDS: SERTRALINE 50 MG TABLET PO SCH (08:44)
[2016-12-27] MEDS: LISINOPRIL 10 MG TABLET PO SCH (08:44)
[2016-12-27] MEDS: DOCUSATE SODIUM 100 MG CAPSULE PO SCH (08:44)
--- NOTE | 2016-12-27 11:04 | Discharge Summary ---
Hospital Course - Hospital Course Hospital Course: This is a 81-year-old man who Dr. Granado follows with a history of a nonischemic cardiomyopathy. He had an ICD placed for survival benefit with a rate set at 40 as the patient had no significant bradycardia arrhythmia. He had been started on Lanoxin and amiodarone and presented with a paced rhythm at 40 and it had 21 V. fib events treated with DC countershock through the device. We increased his paced rate to 60 bpm and increased his amiodarone to 400 mg p.o. twice daily and we stopped his Lanoxin. He has done well and I think is ready for discharge to be seen by Dr. Granado in several weeks. He is to continue his current medicines after discharge. Diagnosis - Discharge Diagnosis (1) Ventricular fibrillation Status: Acute (2) Nonischemic cardiomyopathy Status: Chronic (3) AICD discharge Status: Resolved (4) Hypertension Status: Acute Discharge Plan - Discharge Data Disposition: Disch To Home/Self Care Condition at Discharge: Stable Discharge Diet: heart healthy Activity: resume usual activities as tolerated Hygiene: no restrictions Weight Bearing at Discharge: full weight bearing Driving: other (Not until seen by Dr. Granado in 2 weeks) - Discharge Medications New Potassium Chloride Cap/Tab [K Dur] 20 meq PO DAILY #30 tablet Amiodarone Tab [Cordarone Tab] 400 mg PO BID #60 tablet Continue Simvastatin 40 mg PO BEDTIME Cholecalciferol [Vitamin D3] 2,000 unit PO DAILY Cyanocobalamin (Vitamin B-12) [Vitamin B-12] 1,000 mcg PO DAILY Carvedilol 25 mg PO BID Ascorbic Acid [Vitamin C] 1,000 mg PO DAILY Lisinopril [Prinivil] 2.5 mg PO DAILY #30 tablet Warfarin [Coumadin] 2 mg PO DAILY@1800 #30 tablet Docusate Sodium Cap [Colace Cap] 100 mg PO BID Furosemide Tab [Lasix Tab] 80 mg PO BID DIURETIC Levothyroxine Tab [Synthroid Tab] 200 mcg PO DAILY Pantoprazole Sodium 40 mg PO DAILY Sertraline [Zoloft] 50 mg PO DAILY Spironolactone [Aldactone] 25 mg PO DAILY Aspirin [Aspirin EC] 81 mg PO DAILY Melatonin 3 mg PO BEDTIME Discontinued Digoxin Tab [Lanoxin Tab] 0.125 mg PO DAILY Trazodone HCl 100 mg PO BEDTIME Amiodarone Tab [Cordarone Tab] 200 mg PO BID - Follow Up or Referral Follow Up: Moises Granado MD [Physician] - 2 Weeks (cmp cbc ecg on rtc) - Forms/Instructions Exam - Constitutional Vitals: Period Temp Pulse Resp BP Sys/Leigh Pulse Ox Last 24 Hr 98.0 F-98.5 F 60-70 18-22 95-149/68-83 93-97 Discharge Results Procedures and tests throughout hospitalization: Pending Orders 12/28/16 04:00 BMP w/ Mg [Basic Metabolic Panel w/Mg] IN AM CBC [Comp Blood Count Auto Diff] IN AM Labs on day of discharge: Labs from last 24 hours 12/27/16 12/27/16 12/26/16 04:24 04:24 16:59 WBC 7.5 RBC 4.32 Hgb 10.9 L Hct 35.0 L MCV 81.0 L MCH 25 L MCHC 31.1 L RDW 16.0 Plt Count 143 MPV 11.1 Neut % (Auto) 74.5 H Lymph % (Auto) 12.7 L [place] % (Auto) 11.1 Eos % (Auto) 0.8 Baso % (Auto) 0.4 Neut # (Auto) 5.6 Lymph # (Auto) 1.0 L [place] # (Auto) 0.8 Eos # (Auto) 0.1 Baso # (Auto) 0.0 Immature Gran % 0.5 Nucleated RBC % 0.0 Immature Gran # 0.04 Nucleated RBCs # 0.00 Sodium 141 Potassium 3.9 4.1 Chloride 101 Carbon Dioxide 31 Anion Gap 12.9 BUN 22 H Creatinine 1.60 H GFR Calculation 59 BUN/Creatinine Ratio 13.00 Glucose 130 H Calculated Osmolality 285.3 Calcium 8.3 L Magnesium 2.4 DS: Provider Date of admission: 12/24/16 11:41 Primary care physician: . No PCP Attending physician on admission: Jean Alatorre MD Discharging clinician: Jean Alatorre MD
== END 2016-12-27 12:33 | disposition home or self-care (01) | DRG 309 ==
LOC: N.ED 10:33 → N.EDINP 11:41 → N.CC 13:19 → N.TELEN 12-26 11:40
PROVIDERS: ADMIT Internal Medicine Interventional Cardiology; ATTEND Internal Medicine Interventional Cardiology